=== PATIENT | female | born 1930 | race Two or more races ===

== ENCOUNTER 2021-02-14 06:39 | Inpatient (IN) | payer OTHER, MEDICAID ==
[~2021-02-14] VITALS: Ht 142.2 cm; Wt 51.8 kg
[2021-02-14] MEDS ORDERED: DEXTROSE 50% 25 GM / 50ML DISP.SYRIN. IV ONE ×2 (06:50→07:30)
[2021-02-14] MEDS ORDERED: IV NORMAL SALINE 1000ML BAG 1,000 ML IV ONE (07:00)
[2021-02-14 07:18] LABS: BASO # 0.1 x10^3/uL (0.0-0.2); BASO % 1 % (0-3); EOS # 0.1 x10^3/uL (0.0-0.7); EOS % 1 % (0-3); HEMATOCRIT 29.6 % (36.0-47.0); HEMOGLOBIN 9.1 g/dL (12.0-15.5); LYMPH # 1.4 x10^3/uL (1.0-4.8); LYMPH % 18 % (24-48); MEAN CORPUSCULAR HEMOGLOBIN 28 pg (25-35); MEAN CORPUSCULAR HGB CONC 31 g/dL (31-37); MEAN CORPUSCULAR VOLUME 90 fL (79-100); MONO # 0.3 x10^3/uL (0.0-1.1); MONO % 4 % (0-9); NEUT % 77 % (31-73); PLATELET COUNT 357 x10^3/uL (140-400); RED BLOOD COUNT 3.29 x10^6/uL (3.50-5.40); RED CELL DISTRIBUTION WIDTH 16.5 % (11.5-14.5); WHITE BLOOD COUNT 7.8 x10^3/uL (4.0-11.0)
--- NOTE | 2021-02-14 07:18 | RAD ---
INDICATION: Reason: R facial droop / Spl. Instructions: / History: . COMPARISON: None. TECHNIQUE: Axial CT images obtained through the head. One or more of the following individualized dose reduction techniques were utilized for this examinat ion: 1. Automated exposure control; 2. Adjustment of the mA and/or kV according to patient size; 3 . Use of iterative reconstruction technique. FINDINGS: No midline shift. Suprasellar cistern is not effaced. No acute intracranial hemorrhage. Prominence of the ventricles and sulci which can be seen with age-related volume loss. Multiple regions of low density are seen within the bilateral cerebral hemispheres. Largest of which is within the left cerebral hemisphere within the posterior aspect of the left MCA territory with gallo ateral regions of low density also seen posteriorly as well as within the right frontal region. There does appear to be regions of volume loss at these areas of low density from encephalomalacia. Additi onal scattered foci of low density of white matter. IMPRESSION: * No acute intracranial hemorrhage. * Multiple regions of low density and encephalomalacia seen bilaterally. Some of these areas of low density have associated encephalomalacia therefore likely secondary to chronic insult to the region b ut there is no comparison available for review to assess whether any of these are secondary to a juice on of edema from acute on chronic ischemia and it may be helpful to obtain an MRI to better assess an d ensure that none of these foci are acute. Report called to the emergency department at 7:10 AM on d ate of exam. Electronically signed by: Chris Giron MD (02/14/2021 7:15 AM) [id number]
--- NOTE | 2021-02-14 07:28 | RAD ---
INDICATION: Reason: ams / Spl. Instructions: / History: COMPARISON: None. FINDINGS: Single view of chest obtained. Enlarged cardiomediastinal silhouette. Degenerative changes the spine. Deformity of the left proximal humerus could be from old injury. Mild interstitial opacities bilaterally with more focal component at right lung base. IMPRESSION: * Mild interstitial opacities bilaterally with more focal opacity at the right lung base. Could be s econdary to causes such as edema or infiltrate. * Enlarged cardiac Silhouette which can be seen with cardiomegaly and/or pericardial effusion. Electronically signed by: Chris Giron MD (02/14/2021 7:25 AM) [id number]
[2021-02-14 07:33] LABS: CALCIUM 8.9 mg/dL (8.5-10.1); CREATININE 0.9 mg/dL (0.6-1.0); GFR 59.1; POTASSIUM 4.6 mmol/L (3.5-5.1)
--- NOTE | 2021-02-14 07:40 | PHYS DOC ---
Past Medical History Past Medical History: CVA, Diabetes-Type II General Adult EDM: Chief Complaint: NEURO SYMPTOMS/DEFICITS HPI: HPI: Patient is a 89 year old female with PMH of CVA, diabetes, unspecified heart disease who presents with generalized weakness and right-sided facial droop since. Last known well at 5 PM. Has been very generally weak, not eating well for the past couple of days. Has not been able to stand and get herself around. Family states that she was hospitalized in October for similar episode and since then has not been able to speak very much. Patient is unable to give any history even with csw present. Anticoagulated with eliquis. Review of Systems: Review of Systems: Unable to obtain ROS due to patient nonverbal status Heart Score: C/O Chest Pain: N/A Risk Factors: Risk Factors: DM, Current or recent (<one month) smoker, HTN, HLP, family history of CAD, obesity. Risk Scores: Score 0 - 3: 2.5% MACE over next 6 weeks - Discharge Home Score 4 - 6: 20.3% MACE over next 6 weeks - Admit for Clinical Observation Score 7 - 10: 72.7% MACE over next 6 weeks - Early Invasive Strategies Family History: Family History: No pertinent past family history identified Current Medications: Current Medications Medications (Trade) Dose Ordered Sig/Domingo Start Time Stop Time Status Last Admin Dose Admin Dextrose (Dextrose 50%-Water Syringe) 25 gm 1X ONCE 02/14/21 07:30 02/14/21 07:31 02/14/21 06:52 25 GM Sodium Chloride 1,000 ml @ 1,000 mls/hr 1X ONCE 02/14/21 07:00 02/14/21 07:59 02/14/21 07:09 1,000 MLS/HR Allergies: Allergies: Allergies Coded Allergies Type Severity Reaction Last Updated Verified No Known Drug Allergies 02/14/21 No Physical Exam: PE: Constitutional: Ill-appearing. Diaphoretic.. [] HENT: Normocephalic, atraumatic, [] Eyes: No discharge or redness. [] Neck: Normal range of motion, no tenderness, supple, no stridor. [] Cardiovascular: Tachycardic. Regular rhythm, no murmur [] Lungs & Thorax: Bilateral breath sounds clear to auscultation [] Abdomen: Soft, nondistended, nontender.. [] Skin: Warm, diaphoretic, no erythema, no rash. [] Back: No tenderness, no CVA tenderness. [] Extremities: No tenderness, no cyanosis, no clubbing, ROM intact, no edema. [] Neurologic: Eyes are open. Does not follow simple commands. Answers all questions with a dysarthric sounding "no" R sided facial droop seen. All 4 extremities drift to bed immediately. Patient cannot participate in sensory exam. [] Psychologic: Affect normal, judgement normal, mood normal. [] NIH = 17 1a - 0 1b - 1 1c -2 2 - 0 3 - 0 4 - 2 5a - 2 5b -2 6a - 2 6b -2 7- 0 8- 0 9- 2 (chronic since october) 10- 2 (chronic since october) 11- 0 Current Patient Data: Labs: Laboratory Tests Test 02/14/21 06:49 02/14/21 06:55 Glucose (Fingerstick) 40 mg/dL (70-99) *L 315 mg/dL (70-99) H EKG: EKG: Sinus tachycardia. Left axis deviation. Borderline wide QRS with right bundle branch pattern. ST depressions anteriorly. No ST elevations [] Radiology/Procedures: Radiology/Procedures: [] Impression: [facility] [address] [place] [address] IMAGING REPORT Signed PATIENT: EMMIE ARGUETACCOUNT: [id number] : 1930 LOCATION: ER AGE: 89 SEX: F EXAM STATUS: PRE ER ORD. PHYSICIAN: CLOVER DEGROOT MD REASON: ams PROCEDURE: CHEST AP ONLY INDICATION: Reason: ams / Spl. Instructions: / History: COMPARISON: None. FINDINGS: Single view of chest obtained. Enlarged cardiomediastinal silhouette. Degenerative changes the spine. Deformity of the left proximal humerus could be from old injury. Mild interstitial opacities bilaterally with more focal component at right lung base. IMPRESSION: * Mild interstitial opacities bilaterally with more focal opacity at the right lung base. Could be secondary to causes such as edema or infiltrate. * Enlarged cardiac Silhouette which can be seen with cardiomegaly and/or pericardial effusion. Electronically signed by: Clarisse Alejandra MD (02/14/2021 7:25 AM) [id number] DICTATED and SIGNED BY: CLARISSE ALEJANDRA MD DATE: 02/14/21 [id number] [facility] [address] [place] [address] IMAGING REPORT Signed PATIENT: HUSSEIN ARGUETAOUNT: [id number] : 1930 LOCATION: ER AGE: 89 SEX: F EXAM STATUS: PRE ER ORD. PHYSICIAN: CLOVER DEGROOT MD REASON: R facial droop PROCEDURE: CT CODE STROKE HEAD WO INDICATION: Reason: R facial droop / Spl. Instructions: / History: . COMPARISON: None. TECHNIQUE: Axial CT images obtained through the head. One or more of the following individualized dose reduction techniques were utilized for this examination: 1. Automated exposure control; 2. Adjustment of the mA and/or kV according to patient size; 3. Use of iterative reconstruction technique. FINDINGS: No midline shift. Suprasellar cistern is not effaced. No acute intracranial hemorrhage. Prominence of the ventricles and sulci which can be seen with age-related volume loss. Multiple regions of low density are seen within the bilateral cerebral hemispheres. Largest of which is within the left cerebral hemisphere within the posterior aspect of the left MCA territory with bilateral regions of low density also seen posteriorly as well as within the right frontal region. There does appear to be regions of volume loss at these areas of low density from encephalomalacia. Additional scattered foci of low density of white matter. IMPRESSION: * No acute intracranial hemorrhage. * Multiple regions of low density and encephalomalacia seen bilaterally. Some of these areas of low density have associated encephalomalacia therefore likely secondary to chronic insult to the region but there is no comparison available for review to assess whether any of these are secondary to a region of edema from acute on chronic ischemia and it may be helpful to obtain an MRI to better assess and ensure that none of these foci are acute. Report called to the emergency department at 7:10 AM on date of exam. Electronically signed by: Clarisse Alejandra MD (02/14/2021 7:15 AM) [id number] DICTATED and SIGNED BY: CLARISSE ALEJANDRA MD DATE: 02/14/21 [id number] Course & Med Decision Making: Course & Med Decision Making Pertinent Labs and Imaging studies reviewed. (See chart for details) Patient 89-year-old female with history of previous stroke, diabetes, unclear heart history who presents with several days of generalized weakness and new right-sided facial droop. On arrival does have clear right-sided facial droop, neuro exam as above was otherwise nonfocal. She does have a history of stroke and has been unable to communicate since October. Gspxs-[id number] glucose was 40. Facial droop and general strength improved with administration of glucose. CT head showed multifocal infarctions, of unclear chronicity. Given her last known well of at 5 PM, she is clearly not a TPA candidate. Likewise, as she is outside of 24-hour window is not a endovascular therapy candidate. I will consult neurology I am also concerned that her deficits may be more attributed to a metabolic issue than a new ischemic stroke. Will require admission for further work-up. Labs pending. 0740 We'll continue to check kesaf-bh-xjly glucoses. Her symptoms seem to be improving. I believe that she may be in a flutter with 2-1 block as her rate has been steadily 150. Will give 10 mg IV diltiazem. Trop was elevated 0.507, unclear whether this is rate related versus primary occlusive event. I will start heparin and consult cardiology. Patient has been admitted to Dr. Brand, the hospitalist on-call. [id number] Karl Disclaimer: Karl Disclaimer: This electronic medical record was generated, in whole or in part, using a voice recognition dictation system. Departure Departure Impression: Primary Impression: CVA (cerebral vascular accident) Additional Impressions: Hypoglycemia NSTEMI (non-ST elevated myocardial infarction) Atrial flutter with rapid ventricular response Disposition: ADMITTED INPATIENT Condition: IMPROVED CLOVER DEGROOT MD Feb 14, 2021 07:40
[2021-02-14 07:47] LABS: ALBUMIN 2.7 g/dL (3.4-5.0); ALBUMIN/GLOBULIN RATIO 0.7 (1.0-1.7); TOTAL BILIRUBIN 0.6 mg/dL (0.2-1.0); TOTAL PROTEIN 6.7 g/dL (6.4-8.2)
[2021-02-14] MEDS ORDERED: APIX5TAB PO (07:57)
[2021-02-14] MEDS ORDERED: GLIP5TAB10 PO (07:57)
[2021-02-14] MEDS ORDERED: CAPT25TA3 PO (07:58)
[2021-02-14] MEDS ORDERED: METF500T16 PO (07:58)
[2021-02-14] MEDS ORDERED: HEPARIN for IV BOLUS 10,000 UNIT/10 ML VIAL. IV PRN (08:15)
[2021-02-14] MEDS ORDERED: HEPARIN 25,000UTS/250ML PREMIX 250 ML IV PRN (08:15)
--- NOTE | 2021-02-14 08:38 | PDOC1 ---
History and Physical Date of Service: DOS: DATE: 02/14/21 TIME: 08:34 Chief Complaint: Chief Complain: Generalized weakness History of Present Illness: HPI: 89 year old female with PMH of CVA, diabetes, unspecified heart disease who presents with generalized weakness and right-sided facial droop since. Last known well at 5 PM. Has been very generally weak, not eating well for the past couple of days. Has not been able to stand and get herself around. Family states that she was hospitalized in October for similar episode and since then has not been able to speak very much. Patient is unable to give any history even with machine whitener present. ED COURSE per Dr Hernandez's encounter: On arrival does have clear right-sided facial droop, neuro exam as above was otherwise nonfocal. She does have a history of stroke and has been unable to communicate since October. Hdhzm-jp-fptb glucose was 40. Facial droop and general strength improved with administration of glucose. CT head showed multifocal infarctions, of unclear chronicity. Given her last known well of at 5 PM, she is clearly not a TPA candidate. Likewise, as she is outside of 24-hour window is not a endovascular therapy candidate. I will consult neurology I am also concerned that her deficits may be more attributed to a metabolic issue than a new ischemic stroke. Will require admission for further work-up. Labs pending. 0740 We'll continue to check exjbu-db-ekak glucoses. Her symptoms seem to be improving. I believe that she may be in a flutter with 2-1 block as her rate has been steadily 150. Will give 10 mg IV diltiazem. Trop was elevated 0.507, unclear whether this is rate related versus primary occlusive event. I will start heparin and consult cardiology. Past Medical/Surgical History: PMH/PSH: Past Medical History: CVA, Diabetes-Type II Allergies: Allergies: Coded Allergies: No Known Drug Allergies (Unverified , 02/14/21) Family History: Family History: Reviewed with no relevant findings Social History: Social History: No recent alcohol, drug or tobacco abuse Current Medications: Current Medications Current Medications Dextrose (Dextrose 50%-Water Syringe) 25 gm STK-MED ONCE IV ; Start 02/14/21 at 06:50; Stop 02/14/21 at 06:50; Status DC Sodium Chloride 1,000 ml @ 1,000 mls/hr 1X ONCE IV Last administered on 02/14/21at 07:09; Start 02/14/21 at 07:00; Stop 02/14/21 at 07:59; Status DC Dextrose (Dextrose 50%-Water Syringe) 25 gm 1X ONCE IV Last administered on 02/14/21at 06:52; Start 02/14/21 at 07:30; Stop 02/14/21 at 07:31; Status DC Diltiazem HCl (Cardizem Iv Push) 10 mg 1X ONCE IVP ; Start 02/14/21 at 08:00; Stop 02/14/21 at 08:03; Status DC Heparin Sodium/ Dextrose 250 ml @ 0 mls/hr CONT PRN IV PER PROTOCOL; Start 02/14/21 at 08:15 Heparin Sodium (Porcine) (Heparin Sodium) 1,400 unit PRN Q6HRS PRN IV FOR UFH LEVEL LESS THAN 0.2; Start 02/14/21 at 08:15 Active Scripts Active Reported Captopril 25 Mg Tablet 25 Mg PO Metformin Hcl 500 Mg Tablet 500 Mg PO BIDWMEALS Eliquis (Apixaban) 5 Mg Tablet 5 Mg PO Glipizide 5 Mg Tablet 1 Tab PO BID ROS: Review of Systems Review of System Limited to patient's altered mental status Physical Exam: Vital Signs: Vital Signs Date Time Temp Pulse Resp B/P (MAP) Pulse Ox O2 Delivery O2 Flow Rate FiO2 02/14/21 06:45 97.9 148 18 148/95 94 Room Air 97.9 Physcial Exam: General: Well developed, well nourished, no acute distress, well appearing HEENT: Pupils equally round and reactive to light, EOMI, no discharge, normal conjunctiva Neck: Supple, no nuchal rigidity, no JVD, trachea midline, no tenderness Cardiac: RRR, no murmurs, no gallops, no rubs Chest/Lungs: CTAB, no wheeze, no rhonchi, no crackles Abdomen: soft, non-distended, no guarding, no peritoneal signs, non-tender Back: No tenderness Extremities: no edema, pulses intact, non-tender,capillary refill <3 sec bilateral upper and lower extremities, Neuro: Alert and oriented x 4, no focal deficits, normal speech Labs: Labs: Laboratory Tests Test 02/14/21 06:49 8/13/21 06:55 02/14/21 07:41 Glucose (Fingerstick) 40 mg/dL (70-99) 315 mg/dL (70-99) 133 mg/dL (70-99) White Blood Count 7.8 x10^3/uL (4.0-11.0) Red Blood Count 3.29 x10^6/uL (3.50-5.40) Hemoglobin 9.1 g/dL (12.0-15.5) Hematocrit 29.6 % (36.0-47.0) Mean Corpuscular Volume 90 fL (79-100) Mean Corpuscular Hemoglobin 28 pg (25-35) Mean Corpuscular Hemoglobin Concent 31 g/dL (31-37) Red Cell Distribution Width 16.5 % (11.5-14.5) Platelet Count 357 x10^3/uL (140-400) Neutrophils (%) (Auto) 77 % (31-73) Lymphocytes (%) (Auto) 18 % (24-48) Monocytes (%) (Auto) 4 % (0-9) Eosinophils (%) (Auto) 1 % (0-3) Basophils (%) (Auto) 1 % (0-3) Neutrophils # (Auto) 6.0 x10^3/uL (1.8-7.7) Lymphocytes # (Auto) 1.4 x10^3/uL (1.0-4.8) Monocytes # (Auto) 0.3 x10^3/uL (0.0-1.1) Eosinophils # (Auto) 0.1 x10^3/uL (0.0-0.7) Basophils # (Auto) 0.1 x10^3/uL (0.0-0.2) Prothrombin Time 14.0 SEC (11.7-14.0) Prothromb Time International Ratio 1.1 (0.8-1.1) Activated Partial Thromboplast Time 29 SEC (24-38) Sodium Level 139 mmol/L (136-145) Potassium Level 4.6 mmol/L (3.5-5.1) Chloride Level 105 mmol/L (98-107) Carbon Dioxide Level 27 mmol/L (21-32) Anion Gap 7 (6-14) Blood Urea Nitrogen 16 mg/dL (7-20) Creatinine 0.9 mg/dL (0.6-1.0) Estimated GFR (Cockcroft-Gault) 59.1 BUN/Creatinine Ratio 18 (6-20) Glucose Level 219 mg/dL (70-99) Lactic Acid Level 1.7 mmol/L (0.4-2.0) Calcium Level 8.9 mg/dL (8.5-10.1) Total Bilirubin 0.6 mg/dL (0.2-1.0) Aspartate Amino Transf (AST/SGOT) 25 U/L (15-37) Alanine Aminotransferase (ALT/SGPT) 26 U/L (14-59) Alkaline Phosphatase 116 U/L (46-116) Troponin I Quantitative 0.507 ng/mL (0.000-0.055) Total Protein 6.7 g/dL (6.4-8.2) Albumin 2.7 g/dL (3.4-5.0) Albumin/Globulin Ratio 0.7 (1.0-1.7) Laboratory Tests Test 02/14/21 06:49 02/14/21 06:55 02/14/21 07:41 Glucose (Fingerstick) 40 mg/dL (70-99) 315 mg/dL (70-99) 133 mg/dL (70-99) White Blood Count 7.8 x10^3/uL (4.0-11.0) Red Blood Count 3.29 x10^6/uL (3.50-5.40) Hemoglobin 9.1 g/dL (12.0-15.5) Hematocrit 29.6 % (36.0-47.0) Mean Corpuscular Volume 90 fL (79-100) Mean Corpuscular Hemoglobin 28 pg (25-35) Mean Corpuscular Hemoglobin Concent 31 g/dL (31-37) Red Cell Distribution Width 16.5 % (11.5-14.5) Platelet Count 357 x10^3/uL (140-400) Neutrophils (%) (Auto) 77 % (31-73) Lymphocytes (%) (Auto) 18 % (24-48) Monocytes (%) (Auto) 4 % (0-9) Eosinophils (%) (Auto) 1 % (0-3) Basophils (%) (Auto) 1 % (0-3) Neutrophils # (Auto) 6.0 x10^3/uL (1.8-7.7) Lymphocytes # (Auto) 1.4 x10^3/uL (1.0-4.8) Monocytes # (Auto) 0.3 x10^3/uL (0.0-1.1) Eosinophils # (Auto) 0.1 x10^3/uL (0.0-0.7) Basophils # (Auto) 0.1 x10^3/uL (0.0-0.2) Prothrombin Time 14.0 SEC (11.7-14.0) Prothromb Time International Ratio 1.1 (0.8-1.1) Activated Partial Thromboplast Time 29 SEC (24-38) Sodium Level 139 mmol/L (136-145) Potassium Level 4.6 mmol/L (3.5-5.1) Chloride Level 105 mmol/L (98-107) Carbon Dioxide Level 27 mmol/L (21-32) Anion Gap 7 (6-14) Blood Urea Nitrogen 16 mg/dL (7-20) Creatinine 0.9 mg/dL (0.6-1.0) Estimated GFR (Cockcroft-Gault) 59.1 BUN/Creatinine Ratio 18 (6-20) Glucose Level 219 mg/dL (70-99) Lactic Acid Level 1.7 mmol/L (0.4-2.0) Calcium Level 8.9 mg/dL (8.5-10.1) Total Bilirubin 0.6 mg/dL (0.2-1.0) Aspartate Amino Transf (AST/SGOT) 25 U/L (15-37) Alanine Aminotransferase (ALT/SGPT) 26 U/L (14-59) Alkaline Phosphatase 116 U/L (46-116) Troponin I Quantitative 0.507 ng/mL (0.000-0.055) Total Protein 6.7 g/dL (6.4-8.2) Albumin 2.7 g/dL (3.4-5.0) Albumin/Globulin Ratio 0.7 (1.0-1.7) Images: Images PROCEDURE: CHEST AP ONLY IMPRESSION: * Mild interstitial opacities bilaterally with more focal opacity at the right lung base. Could be secondary to causes such as edema or infiltrate. * Enlarged cardiac Silhouette which can be seen with cardiomegaly and/or pericardial effusion. CT HEAD IMPRESSION: * No acute intracranial hemorrhage. * Multiple regions of low density and encephalomalacia seen bilaterally. Some of these areas of low density have associated encephalomalacia therefore likely secondary to chronic insult to the region but there is no comparison available for review to assess whether any of these are secondary to a region of edema from acute on chronic ischemia and it may be helpful to obtain an MRI to better assess and ensure that none of these foci are acute. Report called to the emergency department at 7:10 AM on date of exam. Assessment/Plan Assessment/Plan Acute metabolic encephalopathy Acute hypoglycemia Multiple bilateral encephalomalacia, possible acute on chronic ischemic regions Atrial fib/flutter with 150 bpm History of CVA History of diabetes mellitus type 2 Admit to hospital service for further management Cardiology consult Neurology consult Hypoglycemia protocol R ISS and Accu-Cheks 3 times daily before meals and nightly [] for DVT prophylaxis [] GI prophylaxis ADA diet Full code Discussed with RN and SW Disposition [] Surrogate decision maker is [] Justifications for Admission Other Justification LIANNA JOSE MD Feb 14, 2021 08:38
--- NOTE | 2021-02-14 09:18 | PDOC2 ---
NEUROLOGY CONSULT Date of Service DOS: DATE: 02/14/21 TIME: 09:11 Reason for Consult Reason for Consult: History of stroke, right facial weakness Referring Physician Referring Physician: Dr. Brand Source Source: Caregiver (Daughters), Chart review History of Present Illness History of Present Illness The patient is an 89-year-old right-handed female with history of stroke, diabetes, atrial fib/flutter, who developed generalized weakness last night and right facial weakness, worse this morning. She had a stroke in October while living in [place], it sounds like it left her with generalized weakness and aphasia. Patient has been staying with family here in [place] for the last several months. She is on Eliquis. She has been found to have a sugar of 40 and with treatment, she is doing much better. No one has witnessed any seizures and there is no history of seizures. Patient has had several strokes in the past. Past Medical History Cardiovascular: AFIB, CAD, HTN, Hyperlipidemia CENTRAL NERVOUS SYSTEM: CVA, Periperal neuropathy Endocrine: Diabetes Past Surgical History Past Surgical History: No pertinent history Family History Family History: CVA Social History Social History , no alcohol or tobacco, lives with family Current Medications Current Medications Current Medications Dextrose (Dextrose 50%-Water Syringe) 25 gm STK-MED ONCE IV ; Start 02/14/21 at 06:50; Stop 02/14/21 at 06:50; Status DC Sodium Chloride 1,000 ml @ 1,000 mls/hr 1X ONCE IV Last administered on at 07:09; Start 02/14/21 at 07:00; Stop 02/14/21 at 07:59; Status DC Dextrose (Dextrose 50%-Water Syringe) 25 gm 1X ONCE IV Last administered on 02/14/21at 06:52; Start 02/14/21 at 07:30; Stop 02/14/21 at 07:31; Status DC Diltiazem HCl (Cardizem Iv Push) 10 mg 1X ONCE IVP ; Start 02/14/21 at 08:00; Stop 02/14/21 at 08:03; Status DC Heparin Sodium/ Dextrose 250 ml @ 0 mls/hr CONT PRN IV PER PROTOCOL; Start 02/14/21 at 08:15 Heparin Sodium (Porcine) (Heparin Sodium) 1,400 unit PRN Q6HRS PRN IV FOR UFH LEVEL LESS THAN 0.2; Start 02/14/21 at 08:15 Active Scripts Active Reported Captopril 25 Mg Tablet 25 Mg PO Metformin Hcl 500 Mg Tablet 500 Mg PO BIDWMEALS Eliquis (Apixaban) 5 Mg Tablet 5 Mg PO Glipizide 5 Mg Tablet 1 Tab PO BID Allergies Allergies: Coded Allergies: No Known Drug Allergies (Unverified , 02/14/21) ROS Review of System Negative for fever, chills, weight loss, shortness of breath, chest pain, indigestion, hematochezia, melena, and dysuria. Full 14-point review of systems is negative. Physical Exam Physical Examination General: Well-developed, well-nourished female in no acute distress HEENT: Normocephalic andatraumatic. Temporal arteriespulsatile and nontender. Neck: Supple without bruit, no meningismus Musculoskeletal: Stability:see neurologic. Gait exam:see neurologic. Tone:see neurologic.Strength:see neurologic. Neurological: Mental Status:orientation, memory, attention span/concentration, language, fund of knowledge: Global aphasia. Cranial Nerves:Pupils equal and reactive to light, extraocular movements areintact, visual modi are full to confrontation. Facial sensation is normal. There is a right central facial paresis. Vestibulo-ocular reflex is intact. Palate elevates and tongue protrudes in midline. All other cranial related problems are negative except as mentioned before.Reflexes:0-1+ and symmetric with flexor plantar responses. Motor:3/5 strength with increased tone, normal bulk. Coordination: and gait:Not cooperative. Sensory:Suggestion of stocking loss, definitely responds to pinprick more proximally than distally. Vitals VITALS Vital Signs Date Time Temp Pulse Resp B/P (MAP) Pulse Ox O2 Delivery O2 Flow Rate FiO2 02/14/21 06:45 97.9 148 18 148/95 94 Room Air 97.9 Labs Labs Laboratory Tests Test 02/14/21 06:49 02/14/21 06:55 02/14/21 07:41 Glucose (Fingerstick) 40 mg/dL (70-99) 315 mg/dL (70-99) 133 mg/dL (70-99) White Blood Count 7.8 x10^3/uL (4.0-11.0) Red Blood Count 3.29 x10^6/uL (3.50-5.40) Hemoglobin 9.1 g/dL (12.0-15.5) Hematocrit 29.6 % (36.0-47.0) Mean Corpuscular Volume 90 fL (79-100) Mean Corpuscular Hemoglobin 28 pg (25-35) Mean Corpuscular Hemoglobin Concent 31 g/dL (31-37) Red Cell Distribution Width 16.5 % (11.5-14.5) Platelet Count 357 x10^3/uL (140-400) Neutrophils (%) (Auto) 77 % (31-73) Lymphocytes (%) (Auto) 18 % (24-48) Monocytes (%) (Auto) 4 % (0-9) Eosinophils (%) (Auto) 1 % (0-3) Basophils (%) (Auto) 1 % (0-3) Neutrophils # (Auto) 6.0 x10^3/uL (1.8-7.7) Lymphocytes # (Auto) 1.4 x10^3/uL (1.0-4.8) Monocytes # (Auto) 0.3 x10^3/uL (0.0-1.1) Eosinophils # (Auto) 0.1 x10^3/uL (0.0-0.7) Basophils # (Auto) 0.1 x10^3/uL (0.0-0.2) Prothrombin Time 14.0 SEC (11.7-14.0) Prothromb Time International Ratio 1.1 (0.8-1.1) Activated Partial Thromboplast Time 29 SEC (24-38) Sodium Level 139 mmol/L (136-145) Potassium Level 4.6 mmol/L (3.5-5.1) Chloride Level 105 mmol/L (98-107) Carbon Dioxide Level 27 mmol/L (21-32) Anion Gap 7 (6-14) Blood Urea Nitrogen 16 mg/dL (7-20) Creatinine 0.9 mg/dL (0.6-1.0) Estimated GFR (Cockcroft-Gault) 59.1 BUN/Creatinine Ratio 18 (6-20) Glucose Level 219 mg/dL (70-99) Lactic Acid Level 1.7 mmol/L (0.4-2.0) Calcium Level 8.9 mg/dL (8.5-10.1) Total Bilirubin 0.6 mg/dL (0.2-1.0) Aspartate Amino Transf (AST/SGOT) 25 U/L (15-37) Alanine Aminotransferase (ALT/SGPT) 26 U/L (14-59) Alkaline Phosphatase 116 U/L (46-116) Troponin I Quantitative 0.507 ng/mL (0.000-0.055) Total Protein 6.7 g/dL (6.4-8.2) Albumin 2.7 g/dL (3.4-5.0) Albumin/Globulin Ratio 0.7 (1.0-1.7) Laboratory Tests Test 02/14/21 06:49 02/14/21 06:55 02/14/21 07:41 Glucose (Fingerstick) 40 mg/dL (70-99) 315 mg/dL (70-99) 133 mg/dL (70-99) White Blood Count 7.8 x10^3/uL (4.0-11.0) Red Blood Count 3.29 x10^6/uL (3.50-5.40) Hemoglobin 9.1 g/dL (12.0-15.5) Hematocrit 29.6 % (36.0-47.0) Mean Corpuscular Volume 90 fL (79-100) Mean Corpuscular Hemoglobin 28 pg (25-35) Mean Corpuscular Hemoglobin Concent 31 g/dL (31-37) Red Cell Distribution Width 16.5 % (11.5-14.5) Platelet Count 357 x10^3/uL (140-400) Neutrophils (%) (Auto) 77 % (31-73) Lymphocytes (%) (Auto) 18 % (24-48) Monocytes (%) (Auto) 4 % (0-9) Eosinophils (%) (Auto) 1 % (0-3) Basophils (%) (Auto) 1 % (0-3) Neutrophils # (Auto) 6.0 x10^3/uL (1.8-7.7) Lymphocytes # (Auto) 1.4 x10^3/uL (1.0-4.8) Monocytes # (Auto) 0.3 x10^3/uL (0.0-1.1) Eosinophils # (Auto) 0.1 x10^3/uL (0.0-0.7) Basophils # (Auto) 0.1 x10^3/uL (0.0-0.2) Prothrombin Time 14.0 SEC (11.7-14.0) Prothromb Time International Ratio 1.1 (0.8-1.1) Activated Partial Thromboplast Time 29 SEC (24-38) Sodium Level 139 mmol/L (136-145) Potassium Level 4.6 mmol/L (3.5-5.1) Chloride Level 105 mmol/L (98-107) Carbon Dioxide Level 27 mmol/L (21-32) Anion Gap 7 (6-14) Blood Urea Nitrogen 16 mg/dL (7-20) Creatinine 0.9 mg/dL (0.6-1.0) Estimated GFR (Cockcroft-Gault) 59.1 BUN/Creatinine Ratio 18 (6-20) Glucose Level 219 mg/dL (70-99) Lactic Acid Level 1.7 mmol/L (0.4-2.0) Calcium Level 8.9 mg/dL (8.5-10.1) Total Bilirubin 0.6 mg/dL (0.2-1.0) Aspartate Amino Transf (AST/SGOT) 25 U/L (15-37) Alanine Aminotransferase (ALT/SGPT) 26 U/L (14-59) Alkaline Phosphatase 116 U/L (46-116) Troponin I Quantitative 0.507 ng/mL (0.000-0.055) Total Protein 6.7 g/dL (6.4-8.2) Albumin 2.7 g/dL (3.4-5.0) Albumin/Globulin Ratio 0.7 (1.0-1.7) Images Images CT images obtained through the head. One or more of the following individualized dose reduction techniques were utilized for this examination: 1. Automated exposure control; 2. Adjustment of the mA and/or kV according to patient size; 3. Use of iterative reconstruction technique. FINDINGS: No midline shift. Suprasellar cistern is not effaced. No acute intracranial hemorrhage. Prominence of the ventricles and sulci which can be seen with age-related volume loss. Multiple regions of low density are seen within the bilateral cerebral hemispheres. Largest of which is within the left cerebral hemisphere within the posterior aspect of the left MCA territory with bilateral regions of low density also seen posteriorly as well as within the right frontal region. There does appear to be regions of volume loss at these areas of low density from encephalomalacia. Additional scattered foci of low density of white matter. IMPRESSION: * No acute intracranial hemorrhage. * Multiple regions of low density and encephalomalacia seen bilaterally. Some of these areas of low density have associated encephalomalacia therefore likely secondary to chronic insult to the region but there is no comparison available for review to assess whether any of these are secondary to a region of edema from acute on chronic ischemia and it may be helpful to obtain an MRI to better assess and ensure that none of these foci are acute. Report called to the emergency department at 7:10 AM on date of exam. Assessment/Plan Assessment/Plan Impression: Metabolic encephalopathy due to hypoglycemia, with recurrence of previous stroke symptoms and signs, but I doubt that she has had an acute stroke. She has already made a rapid recovery. 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 Recommendations: Hold off on additional stroke work-up or treatment such as MRI of the brain, stroke pathway. Note that she is already on Eliquis. She is already had several strokes leaving her in a demented state. If she is not improving to baseline over the next few days we can always go back and do an MRI Fully discussed with family who agree with this approach. Thank you for letting me help with the patient's care. ADITYA RIVERA MD Feb 14, 2021 09:18
--- NOTE | 2021-02-14 13:31 | PDOC1 ---
History and Physical Date of Service: DOS: DATE: 02/14/21 TIME: 13:26 History of Present Illness: HPI: She obtained from discussion with the ED physician and using fur dressing supervisor seferino chnology with daughter and the patient. 89-year-old female with past medical history of diabetes mellitus type 2, possible atrial fibrillation taking Eliquis, and history of a stroke who presents with generalized weakness and right-sided facial droop of unknown time. In fact for the last past 2 to 3 weeks patient has been feeling generally weak and loss of appetite. Patient has been unable to stand and mobilize on her own. She normally is able to walk on her own and active with her ADLs and IADLs. Daughter states that she was in the hospital of October and for the very similar situation. Was seen by a heart doctor in [place] and was actually started on Eliquis around that time as well. Currently patient is unable to express her relative review of systems. In the ED patient was found to have a glucose measurement of [address] head was done for completeness which showed multiple infarcts bilaterally. Neurology was consulted and I believe that this is doubtful that this is an acute stroke and likely related to a recurrence of previous stroke symptoms and signs related to patient's hypoglycemia. Past Medical/Surgical History: PMH/PSH: Past medical history of diabetes type 2, history of CVA Allergies: Allergies: Coded Allergies: No Known Drug Allergies (Unverified , 02/14/21) Family History: Family History: Reviewed with no relevant findings. Patient family does have multiple members with diabetes. Social History: Social History: Denies alcohol, tobacco or drug abuse. Current Medications: Current Medications Current Medications Dextrose (Dextrose 50%-Water Syringe) 25 gm STK-MED ONCE IV ; Start 02/14/21 at 06:50; Stop 02/14/21 at 06:50; Status DC Sodium Chloride 1,000 ml @ 1,000 mls/hr 1X ONCE IV Last administered on 02/14/21at 07:09; Start 02/14/21 at 07:00; Stop 02/14/21 at 07:59; Status DC Dextrose (Dextrose 50%-Water Syringe) 25 gm 1X ONCE IV Last administered on 02/14/21at 06:52; Start 02/14/21 at 07:30; Stop 02/14/21 at 07:31; Status DC Diltiazem HCl (Cardizem Iv Push) 10 mg 1X ONCE IVP Last administered on 02/14/21at 09:39; Start 02/14/21 at 08:00; Stop 02/14/21 at 08:03; Status DC Heparin Sodium/ Dextrose 250 ml @ 0 mls/hr CONT PRN IV PER PROTOCOL Last administered on 02/14/21at 09:49; Start 02/14/21 at 08:15 Heparin Sodium (Porcine) (Heparin Sodium) 1,400 unit PRN Q6HRS PRN IV FOR UFH LEVEL LESS THAN 0.2 Last administered on 02/14/21at 09:49; Start 02/14/21 at 08:15 Active Scripts Active Reported Captopril 25 Mg Tablet 25 Mg PO Metformin Hcl 500 Mg Tablet 500 Mg PO BIDWMEALS Eliquis (Apixaban) 5 Mg Tablet 5 Mg PO Glipizide 5 Mg Tablet 1 Tab PO BID ROS: Review of Systems Review of System Admitted due to patient's altered mental status Physical Exam: Vital Signs: Vital Signs Date Time Temp Pulse Resp B/P (MAP) Pulse Ox O2 Delivery O2 Flow Rate FiO2 02/14/21 09:39 135 106/74 02/14/21 06:45 97.9 18 94 Room Air 97.9 Physcial Exam: General: Well developed, well nourished, no acute distress, well appearing. Right-sided facial droop HEENT: Pupils equally round and reactive to light, EOMI, no discharge, normal conjunctiva Neck: Supple, no nuchal rigidity, no JVD, trachea midline, no tenderness Cardiac: RRR, no murmurs, no gallops, no rubs Chest/Lungs: CTAB, no wheeze, no rhonchi, no crackles Abdomen: soft, non-distended, no guarding, no peritoneal signs, non-tender Back: No tenderness Extremities: no edema, pulses intact, non-tender,capillary refill <3 sec bilateral upper and lower extremities, Neuro: Alert and awake, no focal deficits, aphasic. Spontaneous movement of all extremities. Muscle strength was not assessed Labs: Labs: Laboratory Tests Test 02/14/21 06:49 02/14/21 06:55 02/14/21 07:41 02/14/21 11:30 Glucose (Fingerstick) 40 mg/dL (70-99) 315 mg/dL (70-99) 133 mg/dL (70-99) White Blood Count 7.8 x10^3/uL (4.0-11.0) Red Blood Count 3.29 x10^6/uL (3.50-5.40) Hemoglobin 9.1 g/dL (12.0-15.5) Hematocrit 29.6 % (36.0-47.0) Mean Corpuscular Volume 90 fL (79-100) Mean Corpuscular Hemoglobin 28 pg (25-35) Mean Corpuscular Hemoglobin Concent 31 g/dL (31-37) Red Cell Distribution Width 16.5 % (11.5-14.5) Platelet Count 357 x10^3/uL (140-400) Neutrophils (%) (Auto) 77 % (31-73) Lymphocytes (%) (Auto) 18 % (24-48) Monocytes (%) (Auto) 4 % (0-9) Eosinophils (%) (Auto) 1 % (0-3) Basophils (%) (Auto) 1 % (0-3) Neutrophils # (Auto) 6.0 x10^3/uL (1.8-7.7) Lymphocytes # (Auto) 1.4 x10^3/uL (1.0-4.8) Monocytes # (Auto) 0.3 x10^3/uL (0.0-1.1) Eosinophils # (Auto) 0.1 x10^3/uL (0.0-0.7) Basophils # (Auto) 0.1 x10^3/uL (0.0-0.2) Prothrombin Time 14.0 SEC (11.7-14.0) Prothromb Time International Ratio 1.1 (0.8-1.1) Activated Partial Thromboplast Time 29 SEC (24-38) Sodium Level 139 mmol/L (136-145) Potassium Level 4.6 mmol/L (3.5-5.1) Chloride Level 105 mmol/L (98-107) Carbon Dioxide Level 27 mmol/L (21-32) Anion Gap 7 (6-14) Blood Urea Nitrogen 16 mg/dL (7-20) Creatinine 0.9 mg/dL (0.6-1.0) Estimated GFR (Cockcroft-Gault) 59.1 BUN/Creatinine Ratio 18 (6-20) Glucose Level 219 mg/dL (70-99) Lactic Acid Level 1.7 mmol/L (0.4-2.0) Calcium Level 8.9 mg/dL (8.5-10.1) Total Bilirubin 0.6 mg/dL (0.2-1.0) Aspartate Amino Transf (AST/SGOT) 25 U/L (15-37) Alanine Aminotransferase (ALT/SGPT) 26 U/L (14-59) Alkaline Phosphatase 116 U/L (46-116) Troponin I Quantitative 0.507 ng/mL (0.000-0.055) 0.489 ng/mL (0.000-0.055) Total Protein 6.7 g/dL (6.4-8.2) Albumin 2.7 g/dL (3.4-5.0) Albumin/Globulin Ratio 0.7 (1.0-1.7) Laboratory Tests Test 02/14/21 06:49 02/14/21 06:55 02/14/21 07:41 02/14/21 11:30 Glucose (Fingerstick) 40 mg/dL (70-99) 315 mg/dL (70-99) 133 mg/dL (70-99) White Blood Count 7.8 x10^3/uL (4.0-11.0) Red Blood Count 3.29 x10^6/uL (3.50-5.40) Hemoglobin 9.1 g/dL (12.0-15.5) Hematocrit 29.6 % (36.0-47.0) Mean Corpuscular Volume 90 fL (79-100) Mean Corpuscular Hemoglobin 28 pg (25-35) Mean Corpuscular Hemoglobin Concent 31 g/dL (31-37) Red Cell Distribution Width 16.5 % (11.5-14.5) Platelet Count 357 x10^3/uL (140-400) Neutrophils (%) (Auto) 77 % (31-73) Lymphocytes (%) (Auto) 18 % (24-48) Monocytes (%) (Auto) 4 % (0-9) Eosinophils (%) (Auto) 1 % (0-3) Basophils (%) (Auto) 1 % (0-3) Neutrophils # (Auto) 6.0 x10^3/uL (1.8-7.7) Lymphocytes # (Auto) 1.4 x10^3/uL (1.0-4.8) Monocytes # (Auto) 0.3 x10^3/uL (0.0-1.1) Eosinophils # (Auto) 0.1 x10^3/uL (0.0-0.7) Basophils # (Auto) 0.1 x10^3/uL (0.0-0.2) Prothrombin Time 14.0 SEC (11.7-14.0) Prothromb Time International Ratio 1.1 (0.8-1.1) Activated Partial Thromboplast Time 29 SEC (24-38) Sodium Level 139 mmol/L (136-145) Potassium Level 4.6 mmol/L (3.5-5.1) Chloride Level 105 mmol/L (98-107) Carbon Dioxide Level 27 mmol/L (21-32) Anion Gap 7 (6-14) Blood Urea Nitrogen 16 mg/dL (7-20) Creatinine 0.9 mg/dL (0.6-1.0) Estimated GFR (Cockcroft-Gault) 59.1 BUN/Creatinine Ratio 18 (6-20) Glucose Level 219 mg/dL (70-99) Lactic Acid Level 1.7 mmol/L (0.4-2.0) Calcium Level 8.9 mg/dL (8.5-10.1) Total Bilirubin 0.6 mg/dL (0.2-1.0) Aspartate Amino Transf (AST/SGOT) 25 U/L (15-37) Alanine Aminotransferase (ALT/SGPT) 26 U/L (14-59) Alkaline Phosphatase 116 U/L (46-116) Troponin I Quantitative 0.507 ng/mL (0.000-0.055) 0.489 ng/mL (0.000-0.055) Total Protein 6.7 g/dL (6.4-8.2) Albumin 2.7 g/dL (3.4-5.0) Albumin/Globulin Ratio 0.7 (1.0-1.7) Images: Images PROCEDURE: CT CODE STROKE HEAD WO IMPRESSION: * No acute intracranial hemorrhage. * Multiple regions of low density and encephalomalacia seen bilaterally. Some of these areas of low density have associated encephalomalacia therefore likely secondary to chronic insult to the region but there is no comparison available for review to assess whether any of these are secondary to a region of edema from acute on chronic ischemia and it may be helpful to obtain an MRI to better assess and ensure that none of these foci are acute. Report called to the emergency department at 7:10 AM on date of exam. PROCEDURE: CHEST AP ONLY INDICATION: Reason: ams / Spl. Instructions: / History: COMPARISON: None. FINDINGS: Single view of chest obtained. Enlarged cardiomediastinal silhouette. Degenerative changes the spine. Deformity of the left proximal humerus could be from old injury. Mild interstitial opacities bilaterally with more focal component at right lung base. IMPRESSION: * Mild interstitial opacities bilaterally with more focal opacity at the right lung base. Could be secondary to causes such as edema or infiltrate. * Enlarged cardiac Silhouette which can be seen with cardiomegaly and/or pericardial effusion. Assessment/Plan Assessment/Plan Acute metabolic encephalopathy Acute hypoglycemia Multiple bilateral encephalomalacia, possible acute on chronic ischemic regions Atrial fib/flutter with 150 bpm History of CVA History of diabetes mellitus type 2 Admit to hospital service for further management Cardiology consult Neurology consult Hypoglycemia protocol R ISS and Accu-Cheks 3 times daily before meals and nightly Eliquis for DVT prophylaxis Protonix GI prophylaxis ADA diet Full code Discussed with RN and SW Disposition inpatient management as above Surrogate decision maker is daughter Justifications for Admission Other Justification LIANNA JOSE MD Feb 14, 2021 13:31
[2021-02-14] MEDS ORDERED: ONDANSETRON PF 4 MG/2 ML VIAL. IVP PRN (13:45)
[2021-02-14] MEDS ORDERED: PROCHLORPERAZINE 10 MG/2 ML VIAL. IV PRN (13:45)
[2021-02-14] MEDS ORDERED: SENNOSIDES 8.6 MG TABLET PO PRN (13:45)
[2021-02-14] MEDS ORDERED: DOCUSATE SODIUM 100 MG CAPSULE. PO PRN (13:45)
[2021-02-14] MEDS ORDERED: ACETAMINOPHEN 325 MG TABLET. PO PRN (13:45)
[2021-02-14] MEDS ORDERED: DEXTROSE 50% 25 GM / 50ML DISP.SYRIN. IV PRN (13:45)
[2021-02-14] MEDS: IV NORMAL SALINE 1000ML BAG 1,000 ML IV SCH (14:00)
[2021-02-14 15:07] VITALS: BP 126/80
--- NOTE | 2021-02-14 15:33 | PDOC2 ---
KASH BROWN BROOD HATCHERY MANAGER 02/14/21 1533: CARDIAC CONSULT DATE OF CONSULT Date of Consult DATE: 02/14/21 TIME: 15:21 REASON FOR CONSULT Reason for Consult: NSTEMI, flutter RVR REFERRING PHYSICIAN Referring Physician: Maral SOURCE Source: Chart review, Patient HISTORY OF PRESENT ILLNESS HISTORY OF PRESENT ILLNESS This is an 89 yo female admitted for weakness and noted with right facial droop which was worse this morning. She lives with family and had a stroke last October. She was also noted with hypoglycemia with BG at 40. Luz has been taking leiquis for hx of AFIB. Presently she hatfield snot appear to be in distress. she is currently a PUI for possible prior exposure. No SOA and no chest pain. She does not seem to be speaking much even when I talk to her in Arabic. PAST MEDICAL HISTORY Cardiovascular: AFIB, CAD, HTN, Hyperlipidemia CENTRAL NERVOUS SYSTEM: CVA Endocrine: Diabetes (2) PAST SURGICAL HISTORY Past Surgical History: No pertinent history FAMILY HISTORY Family History: Family History Unknown SOCIAL HISTORY Smoke: No ALCOHOL: none Drugs: None Lives: with Family CURRENT MEDICATIONS CURRENT MEDICATIONS Current Medications Medications (Trade) Dose Ordered Sig/Domingo Route PRN Reason Start Time Stop Time Status Last Admin Dose Admin Sodium Chloride 1,000 ml @ 1,000 mls/hr 1X ONCE IV 02/14/21 07:00 02/14/21 07:59 DC 02/14/21 07:09 Dextrose (Dextrose 50%-Water Syringe) 25 gm 1X ONCE IV 02/14/21 07:30 02/14/21 07:31 DC 02/14/21 06:52 Diltiazem HCl (Cardizem Iv Push) 10 mg 1X ONCE IVP 02/14/21 08:00 02/14/21 08:03 DC 02/14/21 09:39 Heparin Sodium/ Dextrose 250 ml @ 0 mls/hr CONT PRN IV PER PROTOCOL 02/14/21 08:15 02/14/21 20:59 02/14/21 09:49 Heparin Sodium (Porcine) (Heparin Sodium) 1,400 unit PRN Q6HRS PRN IV FOR PTT < 40 02/14/21 08:15 02/14/21 20:59 02/14/21 09:49 ALLERGIES ALLERGIES: Coded Allergies: No Known Drug Allergies (Unverified , 02/14/21) PHYSICAL EXAM General: Alert, Cooperative, No acute distress HEENT: Atraumatic, Mucous membr. moist/pink Lungs: Other (diminished) Heart: Other (AFIB RVR) Abdomen: Soft, No tenderness Extremities: No cyanosis, No edema Skin: No breakdown, No significant lesion Neuro: Sensation intact Psych/Mental Status: Other (mumbles) MUSCULOSKELETAL: Osteoarthritic changes both hands VITALS/I&O VITALS/I&O: Vital Signs Date Time Temp Pulse Resp B/P (MAP) Pulse Ox O2 Delivery O2 Flow Rate FiO2 02/14/21 09:39 135 106/74 02/14/21 06:45 97.9 18 94 Room Air 97.9 LABS Lab: Laboratory Tests Test 02/14/21 06:49 02/14/21 06:55 02/14/21 07:41 02/14/21 11:30 Glucose (Fingerstick) 40 mg/dL (70-99) *L 315 mg/dL (70-99) H 133 mg/dL (70-99) H White Blood Count 7.8 x10^3/uL (4.0-11.0) Red Blood Count 3.29 x10^6/uL (3.50-5.40) L Hemoglobin 9.1 g/dL (12.0-15.5) L Hematocrit 29.6 % (36.0-47.0) L Mean Corpuscular Volume 90 fL (79-100) Mean Corpuscular Hemoglobin 28 pg (25-35) Mean Corpuscular Hemoglobin Concent 31 g/dL (31-37) Red Cell Distribution Width 16.5 % (11.5-14.5) H Platelet Count 357 x10^3/uL (140-400) Neutrophils (%) (Auto) 77 % (31-73) H Lymphocytes (%) (Auto) 18 % (24-48) L Monocytes (%) (Auto) 4 % (0-9) Eosinophils (%) (Auto) 1 % (0-3) Basophils (%) (Auto) 1 % (0-3) Neutrophils # (Auto) 6.0 x10^3/uL (1.8-7.7) Lymphocytes # (Auto) 1.4 x10^3/uL (1.0-4.8) Monocytes # (Auto) 0.3 x10^3/uL (0.0-1.1) Eosinophils # (Auto) 0.1 x10^3/uL (0.0-0.7) Basophils # (Auto) 0.1 x10^3/uL (0.0-0.2) Prothrombin Time 14.0 SEC (11.7-14.0) Prothrombin Time INR 1.1 (0.8-1.1) Activated Partial Thromboplast Time 29 SEC (24-38) Sodium Level 139 mmol/L (136-145) Potassium Level 4.6 mmol/L (3.5-5.1) Chloride Level 105 mmol/L (98-107) Carbon Dioxide Level 27 mmol/L (21-32) Anion Gap 7 (6-14) Blood Urea Nitrogen 16 mg/dL (7-20) Creatinine 0.9 mg/dL (0.6-1.0) Estimated GFR (Cockcroft-Gault) 59.1 BUN/Creatinine Ratio 18 (6-20) Glucose Level 219 mg/dL (70-99) H Lactic Acid Level 1.7 mmol/L (0.4-2.0) Calcium Level 8.9 mg/dL (8.5-10.1) Total Bilirubin 0.6 mg/dL (0.2-1.0) Aspartate Amino Transferase (AST) 25 U/L (15-37) Alanine Aminotransferase (ALT) 26 U/L (14-59) Alkaline Phosphatase 116 U/L (46-116) Troponin I Quantitative 0.507 ng/mL (0.000-0.055) 0.489 ng/mL (0.000-0.055) Total Protein 6.7 g/dL (6.4-8.2) Albumin 2.7 g/dL (3.4-5.0) L Albumin/Globulin Ratio 0.7 (1.0-1.7) L Laboratory Tests 02/14/21 06:55 Laboratory Tests 02/14/21 06:55 ASSESSMENT/PLAN ASSESSMENT/PLAN 1. AFIB RVR: not new 2. CVA syndrome vs hypoglycemic episode 3. HTN: controlled 4. HLP 5. NSTEMI: suspect demand mediated type 2 no cardiac symptoms. EKG is AFIB RVR 6. Hx of multiple CVA 7. CAD: unclear details 8. PUI Recommendations 1. Restart home eliquis tomorrow. Heparin for the next 24 hours 2. TTE, TSH FLP trend trop 3. Start on metoprolol. received cardizem bolus in ED. Dig IV x1. 4. ASA. secondary prevention measures LYLY FLORES MD 02/14/21 1707: CARDIAC CONSULT ASSESSMENT/PLAN ASSESSMENT/PLAN Patient seen and evaluated. I agree with our nurse practitioners assessment and plan. AFIB RVR: Apparently chronic. Will start metoprolol for better rate control. Digoxin given x1. Resuming Eliquis tomorrow. CVA syndrome vs hypoglycemic episode HTN: controlled HLP NSTEMI: suspect demand mediated type 2 no cardiac symptoms. EKG is AFIB RVR. Trend troponin. Hx of multiple CVA CAD: unclear details. Continue medications. Troponin as above. KASH ORTEGA APRN Feb 14, 2021 15:33 LYLY FLORES MD Feb 14, 2021 17:07
[2021-02-14] MEDS ORDERED: METOPROLOL TART IMMED RELEASE 25 MG TABLET. PO ONE (15:45)
[2021-02-14] MEDS ORDERED: DIGOXIN IV 500 MCG/2 ML AMPUL. IV ONE (16:00)
[2021-02-14] MEDS ORDERED: METOPROLOL IV PUSH 5 MG/5 ML VIAL. IVP ONE (16:00)
--- NOTE | 2021-02-14 16:23 | CARD ---
MR#: [id number] Date of Study: 02/14/2021 Ordering Physician: LIANNA JOSE, Referring Physician: LIANNA JOSE, Tech: Hunter Sarmiento [facility] [[email or web address]] APPROVED REPORT EXAM: Two-dimensional and M-mode echocardiogram with Doppler and color Doppler. Other Information Quality : AverageHR: 154bpm Rhythm : Tachycardia INDICATION Abnormal ECG 2D DIMENSIONS Left Atrium(2D)4.7 (1.6-4.0cm)IVSd0.9 (0.7-1.1cm) Aortic Root(2D)3.0 (2.0-3.7cm)LVDd3.2 (3.9-5.9cm) LVOT Diameter1.7 (1.8-2.4cm)PWd0.9 (0.7-1.1cm) LVDs2.7 (2.5-4.0cm)FS (%) 15.4 % SV13.9 mlLVEF(%)33.6 (>50%) Mitral Valve MV E Xtvzqykx44.8cm/sMV E Peak Gr.4mmHg MV DECEL [id number] A Cbmaxbft09.2cm/s MV E Mean Gr.2mmHgE/A Ratio2.3 TDI Lateral E' P. V3.86cm/sMedial E' P. V6.56cm/s E/Lateral E'25.1E/Medial E'14.8 Tricuspid Valve TR P. Zwbjcste830kf/sTR Peak Gr.27mmHg Pulmonary Vein S1 Tlozgquw60.8cm/sS2 Ajhmfmpr24.47cm/s D2 Zwezdmst59.5cm/s LEFT VENTRICLE The left ventricle is normal size. There is normal left ventricular wall thickness. The ejection frac tion is severely impaired. EF 35% The inferior wall is severely hypokinetic. Remainder of the LV is m ildly hypokinetic. Transmitral Doppler flow pattern is Grade II-pseudonormal filling dynamics. No lef t ventricle thrombus noted on this study. There is no ventricular septal defect visualized. There is no left ventricular aneurysm. There is no mass noted in the left ventricle. RIGHT VENTRICLE The right ventricle is normal size. There is normal right ventricular wall thickness. RV function mil dly reduced. TAPSE 9mm ATRIA The left atrium is moderately dilated. The right atrium is moderately dilated. The interatrial septum is intact with no evidence for an atrial septal defect or patent foramen ovale as noted on 2-D or Do ppler imaging. AORTIC VALVE The aortic valve is mildly sclerotic. Doppler and Color Flow revealed no significant aortic regurgita tion. There is no significant aortic valvular stenosis. There is no aortic valvular vegetation. MITRAL VALVE The mitral valve is calcified but opens well. Mitral annular calcification is mild to moderate. There is no evidence of mitral valve prolapse. There is no mitral valve stenosis. Doppler and Color-flow r evealed mild to moderate mitral regurgitation. TRICUSPID VALVE The tricuspid valve is normal in structure and function. Doppler and Color Flow revealed moderate tri cuspid regurgitation. RVSP 33 mm Hg. There is no tricuspid valve prolapse or vegetation. There is no tricuspid valve stenosis. PULMONIC VALVE Doppler and Color Flow revealed no pulmonic valvular regurgitation. There is no pulmonic valvular den nosis. GREAT VESSELS The aortic root is normal in size. The ascending aorta is normal in size. IVC is dilated with blunted inspiratory response. PERICARDIAL EFFUSION There is no pleural effusion. There is no evidence of significant pericardial effusion. Critical Notification Critical Value: No <Conclusion> The ejection fraction is severely impaired. EF 35% The inferior wall is severely hypokinetic. Remainder of the LV is mildly hypokinetic. Doppler and Color-flow revealed mild to moderate mitral regurgitation. Doppler and Color Flow revealed moderate tricuspid regurgitation. RVSP 33 mm Hg. Signed by : Pete Webster, Electronically Approved : 02/14/2021 16:23:14
[2021-02-14] MEDS: ASPIRIN ENTERIC COATED 81 MG TABLET.DR. PO SCH (16:39)
[2021-02-14] MEDS: INSULIN LISPRO 300 UNITS/3 ML VIAL. SQ SCH (17:00)
[2021-02-14] MEDS: metFORMIN 500 MG TABLET PO SCH (17:00)
[2021-02-14] MEDS: METOPROLOL TART IMMED RELEASE 25 MG TABLET. PO SCH (18:00)
[2021-02-14 19:50] VITALS: BP 135/68
[2021-02-14] MEDS ORDERED: METOPROLOL TART IMMED RELEASE 25 MG TABLET. PO SCH (21:00)
[2021-02-14] MEDS ORDERED: APIXABAN 5 MG TABLET. PO SCH (21:00)
[2021-02-14 23:34] VITALS: BP 140/65
[2021-02-15] MEDS: IV NORMAL SALINE 1000ML BAG 1,000 ML IV SCH ×3 (00:31→20:00)
[2021-02-15] MEDS: METOPROLOL TART IMMED RELEASE 25 MG TABLET. PO SCH ×4 (00:32→17:10)
--- NOTE | 2021-02-15 01:58 | EKG ---
[facility] [address] [place] [address] Test Date: 2021-02-14 Test Time: 06:46:01 Pat Name: DANETTE Romeropartment: Room: Gender: F Career Development Coordinator: : [id number] Requested By: CLOVER DEGROOT Order Number: [id number] Reading MD: Measurements Intervals [place] Rate: 154 P: -123 MN: 116 QRS: -67 QRSD: 110 T: 0 QT: 268 QTc: 432 Interpretive Statements SINUS TACHYCARDIA ABNORMAL LEFT AXIS DEVIATION R-S TRANSITION ZONE IN V LEADS DISPLACED TO THE RIGHT RVH WITH REPOLARIZATION ABNORMALITY QRS(T) CONTOUR ABNORMALITY CONSISTENT WITH INFERIOR INFARCT AGE UNDETERMINED ABNORMAL ECG RI6.01 No previous ECG available for comparison
[2021-02-15 03:00] VITALS: BP 129/67
[2021-02-15 06:34] LABS: BASO # 0.1 x10^3/uL (0.0-0.2); BASO % 1 % (0-3); EOS # 0.1 x10^3/uL (0.0-0.7); EOS % 2 % (0-3); HEMATOCRIT 33.7 % (36.0-47.0); HEMOGLOBIN 10.3 g/dL (12.0-15.5); LYMPH # 2.1 x10^3/uL (1.0-4.8); LYMPH % 27 % (24-48); MEAN CORPUSCULAR HEMOGLOBIN 28 pg (25-35); MEAN CORPUSCULAR HGB CONC 31 g/dL (31-37); MEAN CORPUSCULAR VOLUME 91 fL (79-100); MONO # 0.5 x10^3/uL (0.0-1.1); MONO % 6 % (0-9); NEUT # 4.8 x10^3/uL (1.8-7.7); NEUT % 64 % (31-73); PLATELET COUNT 402 x10^3/uL (140-400); RED CELL DISTRIBUTION WIDTH 16.6 % (11.5-14.5); WHITE BLOOD COUNT 7.6 x10^3/uL (4.0-11.0)
[2021-02-15 06:52] LABS: CALCIUM 9.3 mg/dL (8.5-10.1); CREATININE 0.7 mg/dL (0.6-1.0); MAGNESIUM 1.5 mg/dL (1.8-2.4); PHOSPHORUS 3.1 mg/dL (2.6-4.7); POTASSIUM 3.8 mmol/L (3.5-5.1)
[2021-02-15 06:55] VITALS: BP 145/78
[2021-02-15] MEDS: INSULIN LISPRO 300 UNITS/3 ML VIAL. SQ SCH ×3 (08:00→17:00)
[2021-02-15] MEDS: APIXABAN 2.5 MG TABLET. PO SCH (09:00)
[2021-02-15] MEDS ORDERED: APIXABAN 5 MG TABLET. PO SCH (09:00)
--- NOTE | 2021-02-15 09:00 | NUR ---
PT PASSED HOUSE BEDSIDE SWALLOW. PT TOOK ORAL MEDICATIONS THIS MORNING WITHOUT DIFFICULTY - NO COUGH AFTERWARDS, CLEAR SPEECH AFTERWARDS.
[2021-02-15] MEDS: ASPIRIN ENTERIC COATED 81 MG TABLET.DR. PO SCH (09:17)
[2021-02-15] MEDS: metFORMIN 500 MG TABLET PO SCH ×2 (09:17→17:09)
[2021-02-15 11:00] VITALS: BP 165/80
--- NOTE | 2021-02-15 11:23 | NUR ---
SPEECH THERAPY CALLED AND WILL DEFER EVAL TODAY DUE TO PT PASSED BEDSIDE SWALLOW AND WAS ABLE TO TAKE HER P.O. MEDS THIS MORNING WITHOUT DIFFICULTY.
--- NOTE | 2021-02-15 11:31 | PDOC ---
[employer] PROGRESS NOTE Date of Service DOS: DATE: 02/15/21 TIME: 11:23 Chief Complaint Chief Complaint Acute metabolic encephalopathy Acute hypoglycemia Multiple bilateral encephalomalacia, possible acute on chronic ischemic regions Atrial fib/flutter with 150 bpm CVA diabetes mellitus type 2 History of Present Illness History of Present Illness 89-year-old female with past medical history of diabetes mellitus type 2, possible atrial fibrillation taking Eliquis, and history of a stroke who presents with generalized weakness and right-sided facial droop of unknown time. In fact for the last past 2 to 3 weeks patient has been feeling generally weak and loss of appetite. Patient has been unable to stand and mobilize on her own. She normally is able to walk on her own and active with her ADLs and IADLs. Daughter states that she was in the hospital of October and for the very similar situation. Was seen by a heart doctor in [place] and was actually started on Eliquis around that time as well. Currently patient is unable to express her relative review of systems. H and P obtained from discussion with the ED physician and using graphic user interface designer technology with daughter and the patient. In the ED patient was found to have a glucose measurement of [address] head was done for completeness which showed multiple infarcts bilaterally. Neurology was consulted and I believe that this is doubtful that this is an acute stroke and likely related to a recurrence of previous stroke symptoms and signs related to patient's hypoglycemia. 02/15/2021 Patient seen and examined in bed D/W RN Chart Review Discussed that we will continue to monitor sugars and vital sign while we await consulted subspeciality input Vitals/I&O Vitals/I&O: Vital Signs Date Time Temp Pulse Resp B/P (MAP) Pulse Ox O2 Delivery O2 Flow Rate FiO2 02/15/21 06:55 97.9 116 20 145/78 (100) 96 Room Air 97.9 I & O 02/14/21 02/14/21 02/15/21 15:00 23:00 07:00 Intake Total 20 ml 91 ml Output Total 100 ml 500 ml Balance -80 ml -409 ml Physical Exam General: Alert, Cooperative, No acute distress Heart: Other (AFIB RVR) Abdomen: Soft, No tenderness Extremities: No cyanosis, No edema Skin: No breakdown, No significant lesion Labs Labs: Laboratory Tests Test 02/14/21 11:30 02/14/21 15:40 02/14/21 16:20 02/14/21 20:35 Troponin I Quantitative 0.489 ng/mL (0.000-0.055) 0.491 ng/mL (0.000-0.055) Thyroid Stimulating Hormone (TSH) 1.183 uIU/mL (0.358-3.74) SARS-CoV-2 RNA (GERMAIN) Invalid (Negative) SARS-CoV-2 Antigen (Rapid) Negative (NEGATIVE) Heparin Anti-Xa Act, Unfractionated 0.77 IU/mL (0.30-0.70) Glucose (Fingerstick) 35 mg/dL (70-99) Test 02/14/21 21:00 02/14/21 21:22 02/15/21 05:15 02/15/21 07:28 Activated Partial Thromboplast Time 50 SEC (24-38) 51 SEC (24-38) Glucose (Fingerstick) 164 mg/dL (70-99) 69 mg/dL (70-99) White Blood Count 7.6 x10^3/uL (4.0-11.0) Red Blood Count 3.70 x10^6/uL (3.50-5.40) Hemoglobin 10.3 g/dL (12.0-15.5) Hematocrit 33.7 % (36.0-47.0) Mean Corpuscular Volume 91 fL (79-100) Mean Corpuscular Hemoglobin 28 pg (25-35) Mean Corpuscular Hemoglobin Concent 31 g/dL (31-37) Red Cell Distribution Width 16.6 % (11.5-14.5) Platelet Count 402 x10^3/uL (140-400) Neutrophils (%) (Auto) 64 % (31-73) Lymphocytes (%) (Auto) 27 % (24-48) Monocytes (%) (Auto) 6 % (0-9) Eosinophils (%) (Auto) 2 % (0-3) Basophils (%) (Auto) 1 % (0-3) Neutrophils # (Auto) 4.8 x10^3/uL (1.8-7.7) Lymphocytes # (Auto) 2.1 x10^3/uL (1.0-4.8) Monocytes # (Auto) 0.5 x10^3/uL (0.0-1.1) Eosinophils # (Auto) 0.1 x10^3/uL (0.0-0.7) Basophils # (Auto) 0.1 x10^3/uL (0.0-0.2) Sodium Level 141 mmol/L (136-145) Potassium Level 3.8 mmol/L (3.5-5.1) Chloride Level 106 mmol/L (98-107) Carbon Dioxide Level 25 mmol/L (21-32) Anion Gap 10 (6-14) Blood Urea Nitrogen 10 mg/dL (7-20) Creatinine 0.7 mg/dL (0.6-1.0) Estimated GFR (Cockcroft-Gault) 79.0 Glucose Level 69 mg/dL (70-99) Calcium Level 9.3 mg/dL (8.5-10.1) Phosphorus Level 3.1 mg/dL (2.6-4.7) Magnesium Level 1.5 mg/dL (1.8-2.4) Review of Systems Review of Systems: Bowel and bladder continent Denies fevers or chills Assessment and Plan Assessmemt and Plan Acute metabolic encephalopathy Acute hypoglycemia Multiple bilateral encephalomalacia, possible acute on chronic ischemic regions Atrial fib/flutter with 150 bpm CVA diabetes mellitus type 2 Plan Awaiting results of COVID test Respiratory isolation Continue monitoring glycemic control R ISS and Accu-Cheks 3 times daily before meals and nightly Cardiology consult Neurology consult Hypoglycemia protocol Continue to hold Glipizide Appreciate subspecialty input PT/OT Trend labs Trend Glucose DVT prophylaxis with Eliquis GI prophylaxis with Protonix Full code Surrogate decision maker is daughter Comment Review of Relevant I have reviewed the following items ilya (where applicable) has been applied. Medications: Current Medications Medications (Trade) Dose Ordered Sig/Domingo Route PRN Reason Start Time Stop Time Status Last Admin Dose Admin Metformin HCl (Glucophage) 500 mg BIDWMEALS PO 02/14/21 17:00 02/15/21 09:17 Dextrose (Dextrose 50%-Water Syringe) 12.5 gm PRN Q15MIN PRN IV SEE COMMENTS 02/14/21 13:45 02/14/21 20:55 Sodium Chloride 1,000 ml @ 100 mls/hr Q10H IV 02/14/21 14:00 02/15/21 09:19 Metoprolol Tartrate (Lopressor) 25 mg 1X ONCE PO 02/14/21 15:45 02/14/21 15:46 DC 02/14/21 16:40 Aspirin (Ecotrin) 81 mg [id number] PO 02/14/21 16:00 02/15/21 09:17 Metoprolol Tartrate (Lopressor) 25 mg Q6HRS PO 02/14/21 18:00 02/15/21 00:32 Metoprolol Tartrate (Lopressor Vial) 5 mg 1X ONCE IVP 02/14/21 16:00 02/14/21 16:02 DC 02/14/21 16:38 Digoxin (Lanoxin) 500 mcg 1X ONCE IV 02/14/21 16:00 02/14/21 16:02 DC 02/14/21 16:39 Apixaban (Eliquis) 2.5 mg BID PO 02/15/21 09:00 02/15/21 09:00 Justifications for Admission Other Justification Atrial flutter and altered mental status ENRIQUETA SANDERS III DO Feb 15, 2021 11:31
--- NOTE | 2021-02-15 14:49 | NUR ---
PT REMOVED HER IV.
[2021-02-15 15:00] VITALS: BP 136/67
--- NOTE | 2021-02-15 15:30 | PDOC ---
PROGRESS NOTES Date of Service DATE: 02/15/21 TIME: 15:28 Subjective Subjective Patient seen and examined Objective Objective Vital Signs Date Time Temp Pulse Resp B/P (MAP) Pulse Ox O2 Delivery O2 Flow Rate FiO2 02/15/21 12:04 113 165/80 02/15/21 11:00 98.1 18 95 Room Air 98.1 Intake and Output 02/15/21 07:00 Intake Total 111 ml Output Total 600 ml Balance -489 ml Intake Oral 20 ml IV Total 91 ml Output Urine Total 600 ml # Voids 2 Physical Exam Abdomen: Normal bowel sounds Heart: Other (Irregular rhythm) General: mild distress Lungs: Other (Mildly decreased breath sounds) Assessment Assessment Problems Medical Problems: (1) Atrial flutter with rapid ventricular response Status: Acute (2) CVA (cerebral vascular accident) Status: Acute (3) Hypoglycemia Status: Acute (4) NSTEMI (non-ST elevated myocardial infarction) Status: Acute AFIB RVR: Apparently chronic. Rate under better control. Restarting Eliquis. CVA syndrome vs hypoglycemic episode HTN: Under better control. HLP NSTEMI: suspect demand mediated type 2 no cardiac symptoms. EKG is AFIB RVR. Troponin levels of 0.507, 0.489 and 0.491. Continue present treatment. Hx of multiple CVA CAD: unclear details. Continue medications. Troponin as above. Comment Review of Relevant I have reviewed the following items ilya (where applicable) has been applied. Labs Laboratory Tests Test 02/14/21 06:49 02/14/21 06:55 02/14/21 07:41 02/14/21 11:30 Glucose (Fingerstick) 40 mg/dL (70-99) 315 mg/dL (70-99) 133 mg/dL (70-99) White Blood Count 7.8 x10^3/uL (4.0-11.0) Red Blood Count 3.29 x10^6/uL (3.50-5.40) Hemoglobin 9.1 g/dL (12.0-15.5) Hematocrit 29.6 % (36.0-47.0) Mean Corpuscular Volume 90 fL (79-100) Mean Corpuscular Hemoglobin 28 pg (25-35) Mean Corpuscular Hemoglobin Concent 31 g/dL (31-37) Red Cell Distribution Width 16.5 % (11.5-14.5) Platelet Count 357 x10^3/uL (140-400) Neutrophils (%) (Auto) 77 % (31-73) Lymphocytes (%) (Auto) 18 % (24-48) Monocytes (%) (Auto) 4 % (0-9) Eosinophils (%) (Auto) 1 % (0-3) Basophils (%) (Auto) 1 % (0-3) Neutrophils # (Auto) 6.0 x10^3/uL (1.8-7.7) Lymphocytes # (Auto) 1.4 x10^3/uL (1.0-4.8) Monocytes # (Auto) 0.3 x10^3/uL (0.0-1.1) Eosinophils # (Auto) 0.1 x10^3/uL (0.0-0.7) Basophils # (Auto) 0.1 x10^3/uL (0.0-0.2) Prothrombin Time 14.0 SEC (11.7-14.0) Prothromb Time International Ratio 1.1 (0.8-1.1) Activated Partial Thromboplast Time 29 SEC (24-38) Sodium Level 139 mmol/L (136-145) Potassium Level 4.6 mmol/L (3.5-5.1) Chloride Level 105 mmol/L (98-107) Carbon Dioxide Level 27 mmol/L (21-32) Anion Gap 7 (6-14) Blood Urea Nitrogen 16 mg/dL (7-20) Creatinine 0.9 mg/dL (0.6-1.0) Estimated GFR (Cockcroft-Gault) 59.1 BUN/Creatinine Ratio 18 (6-20) Glucose Level 219 mg/dL (70-99) Lactic Acid Level 1.7 mmol/L (0.4-2.0) Calcium Level 8.9 mg/dL (8.5-10.1) Total Bilirubin 0.6 mg/dL (0.2-1.0) Aspartate Amino Transf (AST/SGOT) 25 U/L (15-37) Alanine Aminotransferase (ALT/SGPT) 26 U/L (14-59) Alkaline Phosphatase 116 U/L (46-116) Troponin I Quantitative 0.507 ng/mL (0.000-0.055) 0.489 ng/mL (0.000-0.055) Total Protein 6.7 g/dL (6.4-8.2) Albumin 2.7 g/dL (3.4-5.0) Albumin/Globulin Ratio 0.7 (1.0-1.7) Thyroid Stimulating Hormone (TSH) 1.183 uIU/mL (0.358-3.74) Test 02/14/21 15:40 02/14/21 16:20 02/14/21 20:35 02/14/21 21:00 Coronavirus (COVID-19)(PCR) Negative (NEGATIVE) SARS-CoV-2 RNA ([place]) Invalid (Negative) SARS-CoV-2 Antigen (Rapid) Negative (NEGATIVE) Heparin Anti-Xa Act, Unfractionated 0.77 IU/mL (0.30-0.70) Troponin I Quantitative 0.491 ng/mL (0.000-0.055) Glucose (Fingerstick) 35 mg/dL (70-99) Activated Partial Thromboplast Time 50 SEC (24-38) Test 02/14/21 21:22 02/15/21 05:15 02/15/21 07:28 02/15/21 11:36 Glucose (Fingerstick) 164 mg/dL (70-99) 69 mg/dL (70-99) 67 mg/dL (70-99) White Blood Count 7.6 x10^3/uL (4.0-11.0) Red Blood Count 3.70 x10^6/uL (3.50-5.40) Hemoglobin 10.3 g/dL (12.0-15.5) Hematocrit 33.7 % (36.0-47.0) Mean Corpuscular Volume 91 fL (79-100) Mean Corpuscular Hemoglobin 28 pg (25-35) Mean Corpuscular Hemoglobin Concent 31 g/dL (31-37) Red Cell Distribution Width 16.6 % (11.5-14.5) Platelet Count 402 x10^3/uL (140-400) Neutrophils (%) (Auto) 64 % (31-73) Lymphocytes (%) (Auto) 27 % (24-48) Monocytes (%) (Auto) 6 % (0-9) Eosinophils (%) (Auto) 2 % (0-3) Basophils (%) (Auto) 1 % (0-3) Neutrophils # (Auto) 4.8 x10^3/uL (1.8-7.7) Lymphocytes # (Auto) 2.1 x10^3/uL (1.0-4.8) Monocytes # (Auto) 0.5 x10^3/uL (0.0-1.1) Eosinophils # (Auto) 0.1 x10^3/uL (0.0-0.7) Basophils # (Auto) 0.1 x10^3/uL (0.0-0.2) Activated Partial Thromboplast Time 51 SEC (24-38) Sodium Level 141 mmol/L (136-145) Potassium Level 3.8 mmol/L (3.5-5.1) Chloride Level 106 mmol/L (98-107) Carbon Dioxide Level 25 mmol/L (21-32) Anion Gap 10 (6-14) Blood Urea Nitrogen 10 mg/dL (7-20) Creatinine 0.7 mg/dL (0.6-1.0) Estimated GFR (Cockcroft-Gault) 79.0 Glucose Level 69 mg/dL (70-99) Calcium Level 9.3 mg/dL (8.5-10.1) Phosphorus Level 3.1 mg/dL (2.6-4.7) Magnesium Level 1.5 mg/dL (1.8-2.4) Laboratory Tests Test 02/14/21 15:40 02/14/21 16:20 02/14/21 20:35 02/14/21 21:00 Coronavirus (COVID-19)(PCR) Negative (NEGATIVE) SARS-CoV-2 RNA ([place]) Invalid (Negative) SARS-CoV-2 Antigen (Rapid) Negative (NEGATIVE) Heparin Anti-Xa Act, Unfractionated 0.77 IU/mL (0.30-0.70) Troponin I Quantitative 0.491 ng/mL (0.000-0.055) Glucose (Fingerstick) 35 mg/dL (70-99) Activated Partial Thromboplast Time 50 SEC (24-38) Test 02/14/21 21:22 02/15/21 05:15 02/15/21 07:28 02/15/21 11:36 Glucose (Fingerstick) 164 mg/dL (70-99) 69 mg/dL (70-99) 67 mg/dL (70-99) White Blood Count 7.6 x10^3/uL (4.0-11.0) Red Blood Count 3.70 x10^6/uL (3.50-5.40) Hemoglobin 10.3 g/dL (12.0-15.5) Hematocrit 33.7 % (36.0-47.0) Mean Corpuscular Volume 91 fL (79-100) Mean Corpuscular Hemoglobin 28 pg (25-35) Mean Corpuscular Hemoglobin Concent 31 g/dL (31-37) Red Cell Distribution Width 16.6 % (11.5-14.5) Platelet Count 402 x10^3/uL (140-400) Neutrophils (%) (Auto) 64 % (31-73) Lymphocytes (%) (Auto) 27 % (24-48) Monocytes (%) (Auto) 6 % (0-9) Eosinophils (%) (Auto) 2 % (0-3) Basophils (%) (Auto) 1 % (0-3) Neutrophils # (Auto) 4.8 x10^3/uL (1.8-7.7) Lymphocytes # (Auto) 2.1 x10^3/uL (1.0-4.8) Monocytes # (Auto) 0.5 x10^3/uL (0.0-1.1) Eosinophils # (Auto) 0.1 x10^3/uL (0.0-0.7) Basophils # (Auto) 0.1 x10^3/uL (0.0-0.2) Activated Partial Thromboplast Time 51 SEC (24-38) Sodium Level 141 mmol/L (136-145) Potassium Level 3.8 mmol/L (3.5-5.1) Chloride Level 106 mmol/L (98-107) Carbon Dioxide Level 25 mmol/L (21-32) Anion Gap 10 (6-14) Blood Urea Nitrogen 10 mg/dL (7-20) Creatinine 0.7 mg/dL (0.6-1.0) Estimated GFR (Cockcroft-Gault) 79.0 Glucose Level 69 mg/dL (70-99) Calcium Level 9.3 mg/dL (8.5-10.1) Phosphorus Level 3.1 mg/dL (2.6-4.7) Magnesium Level 1.5 mg/dL (1.8-2.4) Medications Current Medications Dextrose (Dextrose 50%-Water Syringe) 25 gm STK-MED ONCE IV ; Start 02/14/21 at 06:50; Stop 02/14/21 at 06:50; Status DC Sodium Chloride 1,000 ml @ 1,000 mls/hr 1X ONCE IV Last administered on 02/14/21at 07:09; Start 02/14/21 at 07:00; Stop 02/14/21 at 07:59; Status DC Dextrose (Dextrose 50%-Water Syringe) 25 gm 1X ONCE IV Last administered on 02/14/21at 06:52; Start 02/14/21 at 07:30; Stop 02/14/21 at 07:31; Status DC Diltiazem HCl (Cardizem Iv Push) 10 mg 1X ONCE IVP Last administered on 02/14/21at 09:39; Start 02/14/21 at 08:00; Stop 02/14/21 at 08:03; Status DC Heparin Sodium/ Dextrose 250 ml @ 0 mls/hr CONT PRN IV PER PROTOCOL Last administered on 02/14/21at 09:49; Start 02/14/21 at 08:15; Stop 02/15/21 at 08:59; Status DC Heparin Sodium (Porcine) (Heparin Sodium) 1,400 unit PRN Q6HRS PRN IV FOR PTT < 40 Last administered on 02/14/21at 09:49; Start 02/14/21 at 08:15; Stop 02/15/21 at 08:59; Status DC Apixaban (Eliquis) 5 mg BID PO ; Start 02/14/21 at 21:00; Stop 02/14/21 at 15:57; Status DC Metformin HCl (Glucophage) 500 mg BIDWMEALS PO Last administered on 02/15/21at 09:17; Start 02/14/21 at 17:00 Sennosides (Senna) 17.2 mg PRN BID PRN PO CONSTIPATION; Start 02/14/21 at 13:45 Docusate Sodium (Colace) 100 mg PRN DAILY PRN PO HARD STOOLS; Start 02/14/21 at 13:45 Ondansetron HCl (Zofran) 4 mg PRN Q6HRS PRN IVP NAUSEA/VOMITING, 1st CHOICE; Start 02/14/21 at 13:45 Insulin Human Lispro (HumaLOG) 0-7 UNITS TIDWMEALS SQ ; Start 02/14/21 at 17:00 Dextrose (Dextrose 50%-Water Syringe) 12.5 gm PRN Q15MIN PRN IV SEE COMMENTS Last administered on 02/14/21at 20:55; Start 02/14/21 at 13:45 Sodium Chloride 1,000 ml @ 100 mls/hr Q10H IV Last administered on 02/15/21at 09:19; Start 02/14/21 at 14:00 Acetaminophen (Tylenol) 650 mg PRN Q4HRS PRN PO TEMP OVER 100.4F OR MILD PAIN; Start 02/14/21 at 13:45 Prochlorperazine Edisylate (Compazine) 10 mg PRN Q6HRS PRN IV NAUSEA/VOMITING, 2nd CHOICE; Start 02/14/21 at 13:45 Metoprolol Tartrate (Lopressor) 25 mg 1X ONCE PO Last administered on 02/14/21at 16:40; Start 02/14/21 at 15:45; Stop 02/14/21 at 15:46; Status DC Metoprolol Tartrate (Lopressor) 25 mg BID PO ; Start 02/14/21 at 21:00; Stop 02/14/21 at 15:57; Status DC Aspirin (Ecotrin) 81 mg DAILYWBKFT PO Last administered on 02/15/21at 09:17; Start 02/14/21 at 16:00 Apixaban (Eliquis) 5 mg BID PO ; Start 02/15/21 at 09:00; Status Cancel Metoprolol Tartrate (Lopressor) 25 mg Q6HRS PO Last administered on 02/15/21at 12:04; Start 02/14/21 at 18:00 Metoprolol Tartrate (Lopressor Vial) 5 mg 1X ONCE IVP Last administered on 02/14/21at 16:38; Start 02/14/21 at 16:00; Stop 02/14/21 at 16:02; Status DC Digoxin (Lanoxin) 500 mcg 1X ONCE IV Last administered on 02/14/21at 16:39; Start 02/14/21 at 16:00; Stop 02/14/21 at 16:02; Status DC Apixaban (Eliquis) 2.5 mg BID PO Last administered on 02/15/21at 09:00; Start 02/15/21 at 09:00 Active Scripts Active Reported Captopril 25 Mg Tablet 25 Mg PO Metformin Hcl 500 Mg Tablet 500 Mg PO BIDWMEALS Eliquis (Apixaban) 5 Mg Tablet 5 Mg PO Glipizide 5 Mg Tablet 1 Tab PO BID Vitals/I & O Vital Sign - Last 24 Hours 02/14/21 02/14/21 02/14/21 02/14/21 15:30 16:38 16:39 16:40 Pulse 154 154 154 B/P (MAP) 126/80 126/80 126/80 O2 Delivery Room Air 02/14/21 02/14/21 02/14/21 02/15/21 19:50 20:00 23:34 00:32 Temp 97.7 97.9 97.7 97.9 Pulse 94 84 84 Resp 20 20 B/P (MAP) 135/68 (90) 140/65 (90) 140/65 Pulse Ox 96 98 O2 Delivery Room Air Room Air Room Air 02/15/21 02/15/21 02/15/21 02/15/21 03:00 06:00 06:55 08:00 Temp 97.7 97.9 97.7 97.9 Pulse 89 85 116 Resp 20 20 B/P (MAP) 129/67 (87) 145/78 (100) Pulse Ox 95 96 O2 Delivery Room Air Room Air Room Air 02/15/21 02/15/21 11:00 12:04 Temp 98.1 98.1 Pulse 94 113 Resp 18 B/P (MAP) 165/80 (108) 165/80 Pulse Ox 95 O2 Delivery Room Air Intake and Output 02/14/21 02/14/21 02/15/21 15:00 23:00 07:00 Intake Total 20 ml 91 ml Output Total 100 ml 500 ml Balance -80 ml -409 ml Justifications for Admission Other Justification Atrial flutter and altered mental status LYLY FLORES MD Feb 15, 2021 15:30
[2021-02-15 17:03] LABS: CHOLESTEROL/HDL RATIO 2.4
[2021-02-15 19:55] VITALS: BP 123/66
[2021-02-15 22:45] VITALS: BP 158/80
[2021-02-16] MEDS: METOPROLOL TART IMMED RELEASE 25 MG TABLET. PO SCH ×2 (00:06→06:27)
[2021-02-16] MEDS: APIXABAN 2.5 MG TABLET. PO SCH ×2 (00:06→08:38)
[2021-02-16 03:45] VITALS: BP 146/79
[2021-02-16] MEDS: IV NORMAL SALINE 1000ML BAG 1,000 ML IV SCH (06:00)
[2021-02-16 07:41] VITALS: BP 140/79
[2021-02-16] MEDS: INSULIN LISPRO 300 UNITS/3 ML VIAL. SQ SCH (08:00)
[2021-02-16 08:09] LABS: BASO # 0.1 x10^3/uL (0.0-0.2); BASO % 2 % (0-3); EOS # 0.1 x10^3/uL (0.0-0.7); EOS % 2 % (0-3); HEMATOCRIT 32.5 % (36.0-47.0); HEMOGLOBIN 10.2 g/dL (12.0-15.5); LYMPH # 2.4 x10^3/uL (1.0-4.8); LYMPH % 31 % (24-48); MEAN CORPUSCULAR HEMOGLOBIN 28 pg (25-35); MEAN CORPUSCULAR HGB CONC 31 g/dL (31-37); MEAN CORPUSCULAR VOLUME 90 fL (79-100); MONO # 0.6 x10^3/uL (0.0-1.1); MONO % 8 % (0-9); NEUT # 4.4 x10^3/uL (1.8-7.7); NEUT % 58 % (31-73); PLATELET COUNT 416 x10^3/uL (140-400); RED BLOOD COUNT 3.63 x10^6/uL (3.50-5.40); RED CELL DISTRIBUTION WIDTH 16.9 % (11.5-14.5); WHITE BLOOD COUNT 7.6 x10^3/uL (4.0-11.0)
[2021-02-16 08:22] LABS: CALCIUM 9.1 mg/dL (8.5-10.1); CREATININE 0.8 mg/dL (0.6-1.0); GFR 67.7; MAGNESIUM 1.3 mg/dL (1.8-2.4); POTASSIUM 4.5 mmol/L (3.5-5.1)
[2021-02-16] MEDS: ASPIRIN ENTERIC COATED 81 MG TABLET.DR. PO SCH (08:38)
[2021-02-16] MEDS: metFORMIN 500 MG TABLET PO SCH (08:38)
[2021-02-16 11:00] VITALS: BP 144/81
[2021-02-16] MEDS ORDERED: METO25TA4 PO ×2 (13:14→15:04)
--- NOTE | 2021-02-16 13:22 | PDOC ---
[facility] PROGRESS NOTE Date of Service DOS: DATE: 02/16/21 TIME: 13:14 Chief Complaint Chief Complaint Acute metabolic encephalopathy Acute hypoglycemia Multiple bilateral encephalomalacia, possible acute on chronic ischemic regions Atrial fib/flutter with 150 bpm CVA diabetes mellitus type 2 History of Present Illness History of Present Illness 89-year-old female with past medical history of diabetes mellitus type 2, possible atrial fibrillation taking Eliquis, and history of a stroke who presents with generalized weakness and right-sided facial droop of unknown time. In fact for the last past 2 to 3 weeks patient has been feeling generally weak and loss of appetite. Patient has been unable to stand and mobilize on her own. She normally is able to walk on her own and active with her ADLs and IADLs. Daughter states that she was in the hospital of October and for the very similar situation. Was seen by a heart doctor in [place] and was actually started on Eliquis around that time as well. Currently patient is unable to express her relative review of systems. H and P obtained from discussion with the ED physician and using registered nurse surgical services technology with daughter and the patient. In the ED patient was found to have a glucose measurement of [address] head was done for completeness which showed multiple infarcts bilaterally. Neurology was consulted and I believe that this is doubtful that this is an acute stroke and likely related to a recurrence of previous stroke symptoms and signs related to patient's hypoglycemia. 02/15/2021 Patient seen and examined in bed D/W RN Chart Review Discussed that we will continue to monitor sugars and vital sign while we await consulted subspeciality input 02/16/2021 Patient alert and oriented. NAD Seen and examined in bed D/W RN, Chart Review Informed patient of negative COVID test and with improved control of sugars we will plan for probable discharge today Vitals/I&O Vitals/I&O: Vital Signs Date Time Temp Pulse Resp B/P (MAP) Pulse Ox O2 Delivery O2 Flow Rate FiO2 02/16/21 11:00 96.5 94 18 144/81 (102) 94 Room Air 96.5 I & O 02/15/21 02/15/21 02/16/21 15:00 23:00 07:00 Intake Total 130 ml 240 ml Balance 130 ml 240 ml Physical Exam General: mild distress Heart: Other (Irregular rhythm) Abdomen: Normal bowel sounds Extremities: No cyanosis, No edema Skin: No breakdown, No significant lesion Labs Labs: Laboratory Tests Test 02/15/21 16:24 02/15/21 20:43 02/16/21 06:40 02/16/21 07:48 Glucose (Fingerstick) 68 mg/dL (70-99) 127 mg/dL (70-99) 93 mg/dL (70-99) White Blood Count 7.6 x10^3/uL (4.0-11.0) Red Blood Count 3.63 x10^6/uL (3.50-5.40) Hemoglobin 10.2 g/dL (12.0-15.5) Hematocrit 32.5 % (36.0-47.0) Mean Corpuscular Volume 90 fL (79-100) Mean Corpuscular Hemoglobin 28 pg (25-35) Mean Corpuscular Hemoglobin Concent 31 g/dL (31-37) Red Cell Distribution Width 16.9 % (11.5-14.5) Platelet Count 416 x10^3/uL (140-400) Neutrophils (%) (Auto) 58 % (31-73) Lymphocytes (%) (Auto) 31 % (24-48) Monocytes (%) (Auto) 8 % (0-9) Eosinophils (%) (Auto) 2 % (0-3) Basophils (%) (Auto) 2 % (0-3) Neutrophils # (Auto) 4.4 x10^3/uL (1.8-7.7) Lymphocytes # (Auto) 2.4 x10^3/uL (1.0-4.8) Monocytes # (Auto) 0.6 x10^3/uL (0.0-1.1) Eosinophils # (Auto) 0.1 x10^3/uL (0.0-0.7) Basophils # (Auto) 0.1 x10^3/uL (0.0-0.2) Sodium Level 144 mmol/L (136-145) Potassium Level 4.5 mmol/L (3.5-5.1) Chloride Level 107 mmol/L (98-107) Carbon Dioxide Level 26 mmol/L (21-32) Anion Gap 11 (6-14) Blood Urea Nitrogen 16 mg/dL (7-20) Creatinine 0.8 mg/dL (0.6-1.0) Estimated GFR (Cockcroft-Gault) 67.7 Glucose Level 79 mg/dL (70-99) Calcium Level 9.1 mg/dL (8.5-10.1) Magnesium Level 1.3 mg/dL (1.8-2.4) Test 02/16/21 11:50 Glucose (Fingerstick) 144 mg/dL (70-99) Review of Systems Review of Systems: Denies DUNN or dizziness Denies fevers or chills Bowel and bladder continent Assessment and Plan Assessmemt and Plan Acute metabolic encephalopathy Acute hypoglycemia Multiple bilateral encephalomalacia, possible acute on chronic ischemic regions Atrial fib/flutter with 150 bpm CVA diabetes mellitus type 2 Plan Covid negative Probable discharge today Continue glycemic control Hypoglycemia protocol Will discharge patient with Glipizide 2.5 mg PO BID Appreciate subspecialty input PT/OT Trend labs Trend Glucose DVT prophylaxis with Eliquis GI prophylaxis with Protonix Full code Surrogate decision maker is daughter Comment Review of Relevant I have reviewed the following items ilya (where applicable) has been applied. Justifications for Admission Other Justification Atrial flutter and altered mental status ENRIQUETA SANDERS III DO Feb 16, 2021 13:22
--- NOTE | 2021-02-16 13:42 | PDOC ---
PROGRESS NOTES Date of Service DATE: 02/16/21 TIME: 13:41 Subjective Subjective Patient seen and examined Objective Objective Vital Signs Date Time Temp Pulse Resp B/P (MAP) Pulse Ox O2 Delivery O2 Flow Rate FiO2 02/16/21 11:00 96.5 94 18 144/81 (102) 94 Room Air 96.5 Intake and Output 02/16/21 07:00 Intake Total 370 ml Balance 370 ml Intake Oral 50 ml IV Total 320 ml # Voids 6 # Bowel Movements 1 Physical Exam Abdomen: Normal bowel sounds Heart: Other (Irregular irregular rhythm) General: mild distress Lungs: Other (Mildly decreased breath sounds) Assessment Assessment Problems Medical Problems: (1) Atrial flutter with rapid ventricular response Status: Acute (2) CVA (cerebral vascular accident) Status: Acute (3) Hypoglycemia Status: Acute (4) NSTEMI (non-ST elevated myocardial infarction) Status: Acute AFIB RVR: Apparently chronic. Rate under better control. Eliquis restarted. CVA syndrome vs hypoglycemic episode. Continue present treatment. HTN: Under better control. HLP NSTEMI: suspect demand mediated type 2 no cardiac symptoms. EKG is AFIB RVR. Troponin levels of 0.507, 0.489 and 0.491. Continue present treatment. Hx of multiple CVA CAD: unclear details. Continue medications. Troponin as above. Comment Review of Relevant I have reviewed the following items ilya (where applicable) has been applied. Labs Laboratory Tests Test 02/14/21 15:40 02/14/21 16:20 02/14/21 20:35 02/14/21 21:00 Coronavirus (COVID-19)(PCR) Negative (NEGATIVE) SARS-CoV-2 RNA ([place]) Invalid (Negative) SARS-CoV-2 Antigen (Rapid) Negative (NEGATIVE) Heparin Anti-Xa Act, Unfractionated 0.77 IU/mL (0.30-0.70) Troponin I Quantitative 0.491 ng/mL (0.000-0.055) Glucose (Fingerstick) 35 mg/dL (70-99) Activated Partial Thromboplast Time 50 SEC (24-38) Test 02/14/21 21:22 02/15/21 05:15 02/15/21 07:28 02/15/21 11:36 Glucose (Fingerstick) 164 mg/dL (70-99) 69 mg/dL (70-99) 67 mg/dL (70-99) White Blood Count 7.6 x10^3/uL (4.0-11.0) Red Blood Count 3.70 x10^6/uL (3.50-5.40) Hemoglobin 10.3 g/dL (12.0-15.5) Hematocrit 33.7 % (36.0-47.0) Mean Corpuscular Volume 91 fL (79-100) Mean Corpuscular Hemoglobin 28 pg (25-35) Mean Corpuscular Hemoglobin Concent 31 g/dL (31-37) Red Cell Distribution Width 16.6 % (11.5-14.5) Platelet Count 402 x10^3/uL (140-400) Neutrophils (%) (Auto) 64 % (31-73) Lymphocytes (%) (Auto) 27 % (24-48) Monocytes (%) (Auto) 6 % (0-9) Eosinophils (%) (Auto) 2 % (0-3) Basophils (%) (Auto) 1 % (0-3) Neutrophils # (Auto) 4.8 x10^3/uL (1.8-7.7) Lymphocytes # (Auto) 2.1 x10^3/uL (1.0-4.8) Monocytes # (Auto) 0.5 x10^3/uL (0.0-1.1) Eosinophils # (Auto) 0.1 x10^3/uL (0.0-0.7) Basophils # (Auto) 0.1 x10^3/uL (0.0-0.2) Activated Partial Thromboplast Time 51 SEC (24-38) Sodium Level 141 mmol/L (136-145) Potassium Level 3.8 mmol/L (3.5-5.1) Chloride Level 106 mmol/L (98-107) Carbon Dioxide Level 25 mmol/L (21-32) Anion Gap 10 (6-14) Blood Urea Nitrogen 10 mg/dL (7-20) Creatinine 0.7 mg/dL (0.6-1.0) Estimated GFR (Cockcroft-Gault) 79.0 Glucose Level 69 mg/dL (70-99) Calcium Level 9.3 mg/dL (8.5-10.1) Phosphorus Level 3.1 mg/dL (2.6-4.7) Magnesium Level 1.5 mg/dL (1.8-2.4) Triglycerides Level 66 mg/dL (0-150) Cholesterol Level 106 mg/dL (0-200) LDL Cholesterol, Calculated 49 mg/dL (0-100) VLDL Cholesterol, Calculated 13 mg/dL (0-40) Non-HDL Cholesterol Calculated 62 mg/dL (0-129) HDL Cholesterol 44 mg/dL (40-60) Cholesterol/HDL Ratio 2.4 Test 02/15/21 16:24 02/15/21 20:43 02/16/21 06:40 02/16/21 07:48 Glucose (Fingerstick) 68 mg/dL (70-99) 127 mg/dL (70-99) 93 mg/dL (70-99) White Blood Count 7.6 x10^3/uL (4.0-11.0) Red Blood Count 3.63 x10^6/uL (3.50-5.40) Hemoglobin 10.2 g/dL (12.0-15.5) Hematocrit 32.5 % (36.0-47.0) Mean Corpuscular Volume 90 fL (79-100) Mean Corpuscular Hemoglobin 28 pg (25-35) Mean Corpuscular Hemoglobin Concent 31 g/dL (31-37) Red Cell Distribution Width 16.9 % (11.5-14.5) Platelet Count 416 x10^3/uL (140-400) Neutrophils (%) (Auto) 58 % (31-73) Lymphocytes (%) (Auto) 31 % (24-48) Monocytes (%) (Auto) 8 % (0-9) Eosinophils (%) (Auto) 2 % (0-3) Basophils (%) (Auto) 2 % (0-3) Neutrophils # (Auto) 4.4 x10^3/uL (1.8-7.7) Lymphocytes # (Auto) 2.4 x10^3/uL (1.0-4.8) Monocytes # (Auto) 0.6 x10^3/uL (0.0-1.1) Eosinophils # (Auto) 0.1 x10^3/uL (0.0-0.7) Basophils # (Auto) 0.1 x10^3/uL (0.0-0.2) Sodium Level 144 mmol/L (136-145) Potassium Level 4.5 mmol/L (3.5-5.1) Chloride Level 107 mmol/L (98-107) Carbon Dioxide Level 26 mmol/L (21-32) Anion Gap 11 (6-14) Blood Urea Nitrogen 16 mg/dL (7-20) Creatinine 0.8 mg/dL (0.6-1.0) Estimated GFR (Cockcroft-Gault) 67.7 Glucose Level 79 mg/dL (70-99) Calcium Level 9.1 mg/dL (8.5-10.1) Magnesium Level 1.3 mg/dL (1.8-2.4) Test 02/16/21 11:50 Glucose (Fingerstick) 144 mg/dL (70-99) Laboratory Tests Test 02/15/21 16:24 02/15/21 20:43 02/16/21 06:40 02/16/21 07:48 Glucose (Fingerstick) 68 mg/dL (70-99) 127 mg/dL (70-99) 93 mg/dL (70-99) White Blood Count 7.6 x10^3/uL (4.0-11.0) Red Blood Count 3.63 x10^6/uL (3.50-5.40) Hemoglobin 10.2 g/dL (12.0-15.5) Hematocrit 32.5 % (36.0-47.0) Mean Corpuscular Volume 90 fL (79-100) Mean Corpuscular Hemoglobin 28 pg (25-35) Mean Corpuscular Hemoglobin Concent 31 g/dL (31-37) Red Cell Distribution Width 16.9 % (11.5-14.5) Platelet Count 416 x10^3/uL (140-400) Neutrophils (%) (Auto) 58 % (31-73) Lymphocytes (%) (Auto) 31 % (24-48) Monocytes (%) (Auto) 8 % (0-9) Eosinophils (%) (Auto) 2 % (0-3) Basophils (%) (Auto) 2 % (0-3) Neutrophils # (Auto) 4.4 x10^3/uL (1.8-7.7) Lymphocytes # (Auto) 2.4 x10^3/uL (1.0-4.8) Monocytes # (Auto) 0.6 x10^3/uL (0.0-1.1) Eosinophils # (Auto) 0.1 x10^3/uL (0.0-0.7) Basophils # (Auto) 0.1 x10^3/uL (0.0-0.2) Sodium Level 144 mmol/L (136-145) Potassium Level 4.5 mmol/L (3.5-5.1) Chloride Level 107 mmol/L (98-107) Carbon Dioxide Level 26 mmol/L (21-32) Anion Gap 11 (6-14) Blood Urea Nitrogen 16 mg/dL (7-20) Creatinine 0.8 mg/dL (0.6-1.0) Estimated GFR (Cockcroft-Gault) 67.7 Glucose Level 79 mg/dL (70-99) Calcium Level 9.1 mg/dL (8.5-10.1) Magnesium Level 1.3 mg/dL (1.8-2.4) Test 02/16/21 11:50 Glucose (Fingerstick) 144 mg/dL (70-99) Medications Current Medications Dextrose (Dextrose 50%-Water Syringe) 25 gm STK-MED ONCE IV ; Start 02/14/21 at 06:50; Stop 02/14/21 at 06:50; Status DC Sodium Chloride 1,000 ml @ 1,000 mls/hr 1X ONCE IV Last administered on 02/14/21at 07:09; Start 02/14/21 at 07:00; Stop 02/14/21 at 07:59; Status DC Dextrose (Dextrose 50%-Water Syringe) 25 gm 1X ONCE IV Last administered on 02/14/21at 06:52; Start 02/14/21 at 07:30; Stop 02/14/21 at 07:31; Status DC Diltiazem HCl (Cardizem Iv Push) 10 mg 1X ONCE IVP Last administered on 02/14/21at 09:39; Start 02/14/21 at 08:00; Stop 02/14/21 at 08:03; Status DC Heparin Sodium/ Dextrose 250 ml @ 0 mls/hr CONT PRN IV PER PROTOCOL Last administered on 02/14/21at 09:49; Start 02/14/21 at 08:15; Stop 02/15/21 at 08:59; Status DC Heparin Sodium (Porcine) (Heparin Sodium) 1,400 unit PRN Q6HRS PRN IV FOR PTT < 40 Last administered on 02/14/21at 09:49; Start 02/14/21 at 08:15; Stop 02/15/21 at 08:59; Status DC Apixaban (Eliquis) 5 mg BID PO ; Start 02/14/21 at 21:00; Stop 02/14/21 at 15:57; Status DC Metformin HCl (Glucophage) 500 mg BIDWMEALS PO Last administered on 02/16/21at 08:38; Start 02/14/21 at 17:00 Sennosides (Senna) 17.2 mg PRN BID PRN PO CONSTIPATION; Start 02/14/21 at 13:45 Docusate Sodium (Colace) 100 mg PRN DAILY PRN PO HARD STOOLS; Start 02/14/21 at 13:45 Ondansetron HCl (Zofran) 4 mg PRN Q6HRS PRN IVP NAUSEA/VOMITING, 1st CHOICE; Start 02/14/21 at 13:45 Insulin Human Lispro (HumaLOG) 0-7 UNITS TIDWMEALS SQ ; Start 02/14/21 at 17:00 Dextrose (Dextrose 50%-Water Syringe) 12.5 gm PRN Q15MIN PRN IV SEE COMMENTS Last administered on 02/14/21at 20:55; Start 02/14/21 at 13:45 Sodium Chloride 1,000 ml @ 100 mls/hr Q10H IV Last administered on 02/15/21at 09:19; Start 02/14/21 at 14:00 Acetaminophen (Tylenol) 650 mg PRN Q4HRS PRN PO TEMP OVER 100.4F OR MILD PAIN; Start 02/14/21 at 13:45 Prochlorperazine Edisylate (Compazine) 10 mg PRN Q6HRS PRN IV NAUSEA/VOMITING, 2nd CHOICE; Start 02/14/21 at 13:45 Metoprolol Tartrate (Lopressor) 25 mg 1X ONCE PO Last administered on 02/14/21at 16:40; Start 02/14/21 at 15:45; Stop 02/14/21 at 15:46; Status DC Metoprolol Tartrate (Lopressor) 25 mg BID PO ; Start 02/14/21 at 21:00; Stop 02/14/21 at 15:57; Status DC Aspirin (Ecotrin) 81 mg DAILYWBKFT PO Last administered on 02/16/21at 08:38; Start 02/14/21 at 16:00 Apixaban (Eliquis) 5 mg BID PO ; Start 02/15/21 at 09:00; Status Cancel Metoprolol Tartrate (Lopressor) 25 mg Q6HRS PO Last administered on 02/16/21at 06:27; Start 02/14/21 at 18:00 Metoprolol Tartrate (Lopressor Vial) 5 mg 1X ONCE IVP Last administered on 02/14/21at 16:38; Start 02/14/21 at 16:00; Stop 02/14/21 at 16:02; Status DC Digoxin (Lanoxin) 500 mcg 1X ONCE IV Last administered on 02/14/21at 16:39; Start 02/14/21 at 16:00; Stop 02/14/21 at 16:02; Status DC Apixaban (Eliquis) 2.5 mg BID PO Last administered on 02/16/21at 08:38; Start 02/15/21 at 09:00 Active Scripts Active Metoprolol Tartrate 25 Mg Tablet 25 Mg PO Q6HRS 60 Days Reported Captopril 25 Mg Tablet 25 Mg PO Eliquis (Apixaban) 5 Mg Tablet 5 Mg PO Glipizide 5 Mg Tablet 1 Tab PO BID Vitals/I & O Vital Sign - Last 24 Hours 02/15/21 02/15/21 02/15/21 02/15/21 15:00 17:10 19:55 20:00 Temp 97.8 97.9 97.8 97.9 Pulse 96 96 90 Resp 18 21 B/P (MAP) 136/67 (90) 136/67 123/66 (85) Pulse Ox 94 94 O2 Delivery Room Air Room Air Room Air 02/15/21 02/16/21 02/16/21 02/16/21 22:45 00:06 03:45 06:27 Temp 97.7 97.7 97.7 97.7 Pulse 100 100 69 90 Resp 20 22 B/P (MAP) 158/80 (106) 158/80 146/79 (101) 146/79 Pulse Ox 96 94 O2 Delivery Room Air Room Air 02/16/21 02/16/21 02/16/21 07:41 08:00 11:00 Temp 97.1 96.5 97.1 96.5 Pulse 85 94 Resp 20 18 B/P (MAP) 140/79 (99) 144/81 (102) Pulse Ox 95 94 O2 Delivery Room Air Room Air Room Air Intake and Output 02/15/21 02/15/21 02/16/21 15:00 23:00 07:00 Intake Total 130 ml 240 ml Balance 130 ml 240 ml Justifications for Admission Other Justification Atrial flutter and altered mental status LYLY FLORES MD Feb 16, 2021 13:42
--- NOTE | 2021-02-16 14:02 | DS ---
DATE OF DISCHARGE: 02/16/2021 ADMITTING DIAGNOSIS: Hypoglycemia. DISCHARGE DIAGNOSES: 1. Resolving hypoglycemia. 2. Hypertension. 3. Chronic anticoagulation. 4. Diabetes. CONSULTS: Dr. Moran and Dr. Polo. PROCEDURES: None. HOSPITAL COURSE: The patient is a pleasant 89-year-old female who presented to the ER with hypoglycemia and mental status change. She was weak. She even had some stroke symptoms. She was unable to stand or mobilize, had a decreased appetite. We noticed that she was hypoglycemic into the 40s. I suspect most of her symptoms were from that. We admitted her and held her glyburide and her metformin. Her glucose has now responded back to within normal range. Her workup was negative. I saw and examined her today. We are going to discharge with close outpatient followup. I am going to put her on half dose of glipizide 2.5 mg p.o. b.i.d. instead of 5 b.i.d. DISPOSITION: Home. ACTIVITY: As tolerated. DIET: Low sodium. DISCHARGE MEDICATIONS: Please see the MRAD. Other medications were glipizide 2.5 b.i.d., captopril 25 mg daily, Eliquis 5 a day, metoprolol 25 mg q. 6 hours. Total time is 32 minutes. ANNE/SIOMARA DR: Severo TID: [id number]
--- NOTE | 2021-02-16 16:05 | NUR ---
DISCHARGED PATIENT TO HOME. DISCHARGE INSTRUCTIONS GIVEN. HEART MONITOR REMOVED. ESCORTED PATIENT OFF UNIT PER WHEELCHAIR INTO A PRIVATE VEHICLE.
== END 2021-02-16 16:15 | disposition home or self-care (01) | DRG 637 ==
LOC: ER 06:39 → ED HOLD 09:50 → 6 SOUTH 15:31
PROVIDERS: ADMIT Internal Medicine; ATTEND Internal Medicine
DX: E11.649 Type 2 diabetes mellitus with hypoglycemia without coma (principal); G93.41 Metabolic encephalopathy; I21.4 Non-ST elevation (NSTEMI) myocardial infarction; Z20.822 Contact with and (suspected) exposure to COVID-19; I48.91 Unspecified atrial fibrillation; G93.89 Other specified disorders of brain; E11.42 Type 2 diabetes mellitus with diabetic polyneuropathy; I10 Essential (primary) hypertension; E78.5 Hyperlipidemia, unspecified; I25.10 Atherosclerotic heart disease of native coronary artery without angina pectoris; Z83.3 Family history of diabetes mellitus; Z82.3 Family history of stroke; Z79.84 Long term (current) use of oral hypoglycemic drugs; Z79.01 Long term (current) use of anticoagulants
CPT/HCPCS: 36415; 70450; 71045; 80048; 80053; 80061; 82962; 83605; 83735; 84100; 84443; 84484; 85025; 85520; 85610; 85730; 87426; 93005; 93306; 96361; 96365; 96366; 96375; 96376; J1160; J1644; J3490; J7030; U0003; U0005; 97530-GP; 97535-GO; 99285-25; G0378